=== PATIENT | female | born 1965 | race Caucasian/White ===

== ENCOUNTER 2017-08-26 11:04 | Inpatient (IN) | payer BC ==
[~2017-08-26] VITALS: Ht 167.6 cm; Wt 82.9 kg
[2017-08-26] VITALS (28 sets, daily range): BP systolic 129–216; BP diastolic 72–115; PULSE 82–102; TEMP 36.8–36.9; O2SAT 95–99; BMI 29.5
[2017-08-26] MEDS ORDERED: ASPI325T39 PO (11:33)
[2017-08-26] MEDS ORDERED: [UNRECOGNIZED DRUG - CODE] PO (11:33)
[2017-08-26] MEDS ORDERED: METF-384 PO (11:33)
[2017-08-26] MEDS ORDERED: SODIUM CHLORIDE 0.9% 1000ML 1,000 ML IV SCH (11:38)
[2017-08-26] MEDS ORDERED: LABETALOL HCL IV 5 MG/ML 20ML IV STA ×2 (11:41→12:40)
[2017-08-26] MEDS ORDERED: SODIUM CHLORIDE 0.9% 1000ML 1,000 ML IV STA (11:51)
[2017-08-26] MEDS ORDERED: NovoLIN-R INSULIN PER UNIT CHARGE IV STA (11:51)
--- NOTE | 2017-08-26 11:59 | DIAGNOSTIC IMAGING REPORT ---
CHEST ONE VIEW PORTABLE CLINICAL HISTORY: Stroke COMPARISON STUDY: No previous studies for comparison. FINDINGS: The cardiac and mediastinal contours are normal. There is no evidence of focal pulmonary consolidation. There is no evidence of failure. No pleural effusions are visualized.[ IMPRESSION: No active disease in the chest. Electronically signed by: Peter Naqvi M.D. 08/26/2017 11:58 AM Dictated Date/Time: 08/26/2017 11:58 AM
[2017-08-26 12:07] LABS: BASO % 0.5 %; BASO ABS # 0.04 K/uL (0-0.2); EOS % 1.5 %; EOS ABS # 0.11 K/uL (0-0.5); HEMATOCRIT 40.1 % (37-47); IG# 0.02 K/uL (0.00-0.02); LYMPH % 18.5 %; LYMPH ABS # 1.36 K/uL (1.2-3.4); MEAN CELL VOLUME 77.3 fL (80-100); MEAN CORPUSCULAR HEMOGLOBIN 28.9 pg (25-34); MEAN CORPUSCULAR HGB CONC 37.4 g/dl (32-36); MEAN PLATELET VOLUME 9.6 fL (7.4-10.4); MONO % 3.5 %; MONO ABS # 0.26 K/uL (0.11-0.59); NEUT % 75.7 %; NEUT ABS # 5.57 K/uL (1.4-6.5); PLATELET COUNT 215 K/uL (130-400); RED CELL DISTRIBUTION WIDTH SD 33.6 fL (36.4-46.3); WHITE BLOOD COUNT 7.36 K/uL (4.8-10.8)
[2017-08-26 12:22] LABS: INR 0.9 (0.9-1.1); PTT PATIENT 25.1 SECONDS (21.0-31.0)
[2017-08-26 12:28] LABS: CALCIUM 9.6 mg/dl (8.5-10.1); CREATININE 3.33 mg/dl (0.60-1.20); POTASSIUM 3.3 mmol/L (3.5-5.1)
--- NOTE | 2017-08-26 12:28 | DIAGNOSTIC IMAGING REPORT ---
CT OF THE HEAD WITHOUT CONTRAST CLINICAL HISTORY: Slurred speech. History of stroke. COMPARISON STUDY: No previous studies for comparison. CT DOSE: 537.48 mGy.cm TECHNIQUE: Helical axial images of the head were obtained without IV contrast. Automated exposure control was utilized for the study. A dose lowering technique was utilized adhering to the principles of ALARA. FINDINGS: No acute intracranial hemorrhage, midline shift or mass effect is present. There is an old 1.5 cm infarct within the right ramirez radiata with evidence of mild volume loss. Infarct extends into the internal capsule and right caudate nuclear. Ventricular system is unremarkable. Basilar cisterns are patent. There are no extra axial collections. There are white matter hypodensities. There are no CT findings to suggest acute dural sinus thrombosis or acute territorial infarct. There are no significant calvarial abnormalities. Visual portions of the sinuses are clear. There is trace fluid within the right mastoid air cells. IMPRESSION: 1. No acute intracranial hemorrhage or mass effect. 2. Old infarct within the right internal capsule/ramirez radiata. 3. White matter hypodensities. These are nonspecific and may reflect small vessel disease however are greater than expected for age. Electronically signed by: José Devi M.D. 08/26/2017 12:26 PM Dictated Date/Time: 08/26/2017 12:17 PM
[2017-08-26] MEDS ORDERED: POTASSIUM CHLORIDE 10 MEQ TABCR PO STA (12:37)
[2017-08-26] MEDS ORDERED: HHS GOAL RANGE 250-350 mg/dl ONE (14:00)
[2017-08-26] MEDS ORDERED: ICU PROTOCOL FOR HYPERGLYCEMIA PRN (14:00)
[2017-08-26] MEDS ORDERED: MODERATE STRESS LEVEL ONE (14:00)
[2017-08-26] MEDS ORDERED: NITROGLYCERIN 0.4 MG SL PER TAB CHARGE SL PRN (14:00)
[2017-08-26] MEDS ORDERED: ACETAMINOPHEN 325 MG TAB PO PRN (14:00)
[2017-08-26] MEDS ORDERED: INSULIN IV INFUSION PROTOCOL SCH (14:10)
[2017-08-26] MEDS ORDERED: PHARMACIST DISCHARGE MED REC CONSULT PRN (14:15)
--- NOTE | 2017-08-26 14:20 | History and Physical ---
History & Physical Date & Time of Service: Aug 26, 2017 at 14:20 Chief Complaint: Slurred Speech, - Hx Of Stroke Primary Care Physician: No Doctor, Assigned History of Present Illness Source: patient, clinic records, hospital records Patient is a 52-year-old female with a past medical history of poorly controlled HTN, DM II and h/o CVA 11 years ago with residual left hand paresthesias who presents with dysarthria beginning yesterday. 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 Began to notice that her mouth "felt funny yesterday", as if her tongue was swollen, although no verbal deficits were noted until today when she began slurring her speech. Speech has improved while in ED. With previous CVA patient first noted uncontrolled HTN and dysarthria, followed by left sided weakness. Was admitted to neuro ICU at [facility] in [place] as she required a drip to control hypertension. Still has residual paresthesias in left hand. Admits that she is noncompliant with medications most of the time, but has taken a full dose aspirin, Metformin and Olmesartan-HCTZ the past 2 days. Denies any headache, visual changes, facial droop, difficulty swallowing, chest pain, shortness of breath, nausea, vomiting, abdominal pain, gait abnormalities or numbness/weakness in upper or lower extremities. Past Medical/Surgical History Medical Problems: (1) Diabetes mellitus, type II Status: Chronic (2) H/O: CVA (cerebrovascular accident) Permanent Comment: R internal capsule; ~2006 Status: Chronic (3) HTN (hypertension) Status: Chronic Surgical Problems: (1) H/O: section Status: Resolved Family History Diabetes mellitus Heart disease Hypertension Social History Smoking Status: Never Smoker Alcohol Use: none Marital Status: Housing status: lives with family Occupational Status: employed Allergies Coded Allergies: Sulfamethoxazole w/Trimethoprim (Unverified Allergy, Unknown, ., 08/26/17) Home Medications Scheduled Aspirin (Aspirin Ec), 325 MG PO DAILY Metformin Hcl (Glucophage), 1,000 MG PO BID Olmesartan/Hctz (Benicar Hct 40/12.5), 1 TAB PO DAILY Review of Systems Ten systems reviewed and negative except as noted in the HPI. Neurologic: + numbness/tingling (left hand) Physical Exam Vital Signs Date Time Temp Pulse Resp B/P (MAP) Pulse Ox O2 Delivery O2 Flow Rate FiO2 08/26/17 12:58 217/118 08/26/17 12:48 92 18 148/136 95 Room Air 08/26/17 12:33 92 18 237/148 98 Room Air 08/26/17 12:25 111 18 263/139 08/26/17 12:17 104 08/26/17 11:45 98 Room Air 08/26/17 11:08 36.9 124 18 253/144 98 Room Air General Appearance: WD/WN, no apparent distress Head: normocephalic, atraumatic Eyes: normal inspection, PERRL, sclerae normal ENT: normal ENT inspection, hearing grossly normal, pharynx normal Neck: supple, trachea midline Respiratory/Chest: chest non-tender, lungs clear, normal breath sounds, no respiratory distress, no accessory muscle use Cardiovascular: regular rate, rhythm, no murmur, normal peripheral pulses Abdomen/GI: non tender, soft, no organomegaly Back: normal inspection Extremities/Musculoskelatal: normal inspection, no calf tenderness, no pedal edema Neurologic/Psych: briquette maker II-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 No facial droop, dysarthria or weakness noted ), alert, normal mood/affect, oriented x 3 Skin: normal color, warm/dry, no rash Diagnostics Laboratory Results Results Past 24 Hours Test 08/26/17 11:45 08/26/17 11:48 08/26/17 11:50 08/26/17 11:52 Range/Units Bedside Glucose 576 70-90 mg/dl Bedside Prothrombin Time INR 1.0 0.9-1.1 White Blood Count 7.36 4.8-10.8 K/uL Red Blood Count 5.19 4.2-5.4 M/uL Hemoglobin 15.0 12.0-16.0 g/dL Hematocrit 40.1 37-47 % Mean Corpuscular Volume 77.3 80-100 fL Mean Corpuscular Hemoglobin 28.9 25-34 pg Mean Corpuscular Hemoglobin Concent 37.4 32-36 g/dl Platelet Count 215 130-400 K/uL Mean Platelet Volume 9.6 7.4-10.4 fL Neutrophils (%) (Auto) 75.7 % Lymphocytes (%) (Auto) 18.5 % Monocytes (%) (Auto) 3.5 % Eosinophils (%) (Auto) 1.5 % Basophils (%) (Auto) 0.5 % Neutrophils # (Auto) 5.57 1.4-6.5 K/uL Lymphocytes # (Auto) 1.36 1.2-3.4 K/uL Monocytes # (Auto) 0.26 0.11-0.59 K/uL Eosinophils # (Auto) 0.11 0-0.5 K/uL Basophils # (Auto) 0.04 0-0.2 K/uL RDW Standard Deviation 33.6 36.4-46.3 fL RDW Coefficient of Variation 12.0 11.5-14.5 % Immature Granulocyte % (Auto) 0.3 % Immature Granulocyte # (Auto) 0.02 0.00-0.02 K/uL Prothrombin Time 9.8 9.0-12.0 SECONDS Prothromb Time International Ratio 0.9 0.9-1.1 Activated Partial Thromboplast Time 25.1 21.0-31.0 SECONDS Partial Thromboplastin Ratio 1.0 Sodium Level 127 136-145 mmol/L Potassium Level 3.3 3.5-5.1 mmol/L Chloride Level 91 98-107 mmol/L Carbon Dioxide Level 21 21-32 mmol/L Anion Gap 15.0 3-11 mmol/L Blood Urea Nitrogen 73 7-18 mg/dl Creatinine 3.33 0.60-1.20 mg/dl Est Creatinine Clear Calc Drug Dose 21.6 ml/min Estimated GFR () 17.6 Estimated GFR (Non- 15.2 BUN/Creatinine Ratio 22.0 10-20 Random Glucose 565 70-99 mg/dl Calcium Level 9.6 8.5-10.1 mg/dl Magnesium Level 2.1 1.8-2.4 mg/dl Troponin I 0.039 0-0.045 ng/ml Beta-Hydroxybutyric Acid 10.47 0.2-2.81 mg/dL Test 08/26/17 13:28 Range/Units Venous Blood pH 7.29 7.36-7.41 Venous Blood Partial Pressure CO2 51 38.0-50.0 mmHg Venous Blood Partial Pressure O2 21 mmHg Venous Blood HCO3 24 mmol/L Venous Blood Oxygen Saturation < 60.0 % Venous Blood Base Excess -2.6 mEq/L Diagnostic Radiology Head CT: IMPRESSION: 1. No acute intracranial hemorrhage or mass effect. 2. Old infarct within the right internal capsule/ramirez radiata. 3. White matter hypodensities. These are nonspecific and may reflect small vessel disease however are greater than expected for age. CXR: IMPRESSION: No active disease in the chest. EKG Sinus tachycardia, biatrial enlargement, left bundle branch block Impression Assessment and Plan Patient is a 52-year-old female with a past medical history of poorly controlled HTN, DM II and h/o CVA 11 years ago with residual left hand paresthesias who presents with dysarthria beginning yesterday. Hypertensive emergency: -Evidence of end organ damage to neuro, nephro systems -BP initially 253/144 -Given IV labetalol in ED. Decreased to 217/118 -Clinical Research Assistant managing -Nicardipine drip initiated with goal SBP 160-180 -Restart home medication -Trend troponin, fasting lipid panel, monitor kidney function Dysarthria: improved -CT head with old infarct within the right internal capsule/ramirez radiata. No acute intracranial findings -Control BP -Continue daily full dose aspirin -Consulted neuro -MRI brain without -MRA head/neck without -Echo DKA: -Non-compliance with home meds -Initial BSG of 565, anion gap of 15, B hydroxybutyric acid of 10.47 -Mild metabolic acidosis with pH of 7.29 -Urine ketones pending -Insulin infusion protocol -Glycemic consult -Diabetic education -IVFs, watching K closely -A1c pending -PRP Q4 Hyponatremia: -Pseudohyponatremia in setting of hyperglycemia -Corrected Na of 138 -D5 half NS with 40 mEq k, per certified real estate appraiser Dispo: -Not to drive until cleared by neurologist or PCP -PT, OT, speech evals ordered per stroke set protocol DVT Ppx: SQ heparin Code status: FULL Dispo: Admit to ICU. Discharge planning ordered. Patient seen in collaboration with Dr. Francis. Please see addendum. Attending Note: Patient is a 52 yr female with PMH of CVA, DM II, HTN, ?? CKD, Non compliance with medications and other problems presents with history of dysarthria, Left finger numbness, slurred speech. Patient had CVA about 11 yrs ago which resulted in Left hand numbness with no gross motor deficits. Patient noticed having difficulty with pronunciation yesterday and it got gradually worse this morning with slurring of words. Admits to being not being compliant with medications usually but has been taking her aspirin regularly since last 1 week.She doesn't take any meds currently for diabetes. CT head showed no acute process. Denies any history of chest pain, SOB, dizziness, fall, head trauma, LOC, change in vision, facial deformity, bowel/bladder incontinence. Physical Exam: Vitals signs as noted above General Appearance:Moderately built and nourished, no apparent distress Head: normocephalic, Atraumatic Eyes: normal inspection, EOMI, PERRL Neck: supple, Trachea midline, Respiratory/Chest: Normal breath sounds, CTA, No accessory muscle use Cardiovascular: S1, S2, No murmur, +Tachycardia Abdomen/GI:Soft, Non tender, Bowel sounds present Extremities/Musculoskelatal:normal inspection, no edema Neurologic/Psych:AAOX3, grossly no focal neurological deficits, + Dysarthria Skin:normal color,warm Assessment and Plan: Hypertensive Emergency: In Setting of stroke like symptoms Started on Nicardipine ggt as per Clinical Research Assistant Received labetalol in ED Benicar HCT held for now CT head: No acute Process Stroke Like Symptoms: R/O Acute CVA Stroke Work up pending Continue Aspirin, statins Neurology consulted DKA: Poorly controlled DM II secondary to Non compliance Not taking any meds at home Check A1C Continue Insulin therapy per DKA protocol monitor electrolytes Renal Insufficiency: Could have underlying CKD (2/2 poorly managed HTN, DM II) Monitor renal function Consider Nephrology consult if no improvement with IV fluids Hypokalemia: Replace and monitor Hyponatremia: Likely secondary to Hyperglycemia: Monitor I personally reviewed the record. Patient is interviewed and examined at bedside. Patient's care is coordinated with Bre Sparrow PA-C. Please refer to the documentation above for details of patient's presentation and for discussion of other issues. Resuscitation Status VTE Prophylaxis Will order VTE Prophylaxis: Yes
[2017-08-26] MEDS ORDERED: PHARMACY GLYCEMIC MGMT CONSULT PRN (14:40)
[2017-08-26] MEDS ORDERED: POTASSIUM CHLORIDE 20 MEQ TABCR PO STA (14:55)
--- NOTE | 2017-08-26 14:59 | Critical Care Consultation ---
Critical Care Consultation Date of Consultation: Aug 26, 2017. Attending Physician: Toño Mansfield Reason for Consultation: Hypertensive emergency diabetic ketoacidosis History of Present Illness Patient is a 52-year-old male with a significant past medical history for hypertension and diabetes on metformin 1000 mg twice daily, 325 mg aspirin daily and Benicar hydrochlorothiazide 40/12.5 mg 1 by mouth daily who presents with increasing slurred speech and duration of greater than 24 hours. Approximately a 11 years ago she had a similar hypertensive episode which systolics were greater than 200 and she suffered a CVA and has some very mild residual deficits in the left hand, she denies sensory loss or facial droop. 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 She admits to being a noncompliant patient and intermittently takes her medications. She is not routinely checking her blood sugars and she is not regularly checking her blood pressures. When she does take her medications and check her blood pressure she reports that is normally in the 130s systolic. When she is not taking her medication she does not check her blood pressures. Yesterday she started noticed that she was having difficulty with enunciation of words. She also noticed that there was some numbness in her left fingers which has now resolved although they are mildly weak when compared to the right. Since symptoms have gotten worse today after initial improvement yesterday she sought medical treatment. She is reports that she is taking her medication for the last 2 days, despite this her blood pressures are routinely in the 200s systolic. In the emergency department she was given a dose of labetalol and had significant reduction in her blood pressure; however it quickly increased back into the 200 systolic. I have been asked to provide further evaluation and management. With regards to her driving she drove herself from [place] down to [facility]. Her is currently in [place] and is driving to the area tomorrow. With regards to her previous episode back 11 years ago she was instructed not to drive until cleared by neurology. She reports that she waited approximately 1 month and was still unable to get a follow-up appointment with neurology at which time she resumed her driving. Past Medical/Surgical History Hypertension Previous stroke of the right internal capsule Diabetes Family History Diabetes mellitus Heart disease Hypertension Social History Smoking Status: Never Smoker Smokeless Tobacco Use: No Alcohol Use: none Drug Use: none Marital Status: Housing Status: lives with family Allergies Coded Allergies: Sulfamethoxazole w/Trimethoprim (Unverified Allergy, Unknown, ., 08/26/17) Home Medications Scheduled Aspirin (Aspirin Ec), 325 MG PO DAILY Metformin Hcl (Glucophage), 1,000 MG PO BID Olmesartan/Hctz (Benicar Hct 40/12.5), 1 TAB PO DAILY Current Inpatient Medications Current Inpatient Medications Medications (Trade) Dose Ordered Sig/Neha Route Start Time Stop Time Status Last Admin Dose Admin Sodium Chloride 1,000 ml @ 50 mls/hr Q20H IV 08/26/17 11:38 09/25/17 11:37 08/26/17 11:38 50 MLS/HR Acetaminophen (Tylenol Tab) 650 mg Q4H PRN PO 08/26/17 14:00 09/25/17 13:59 Nitroglycerin (Nitrostat Tab) 0.4 mg UD PRN SL 08/26/17 14:00 09/25/17 13:59 Pantoprazole Sodium 40 mg/ Syringe 10 ml @ 5 mls/min DAILY IV 08/27/17 09:00 09/26/17 08:59 UNV Miscellaneous Information (Icu Protocol For Hyperglycemia) 1 ea PRN PRN N/A 08/26/17 14:00 08/28/17 13:59 Insulin Human Regular (Insulin IV Infusion Protocol) 1 ea Q15M N/A 08/26/17 14:10 09/25/17 14:09 Insulin Aspart (novoLOG ASPART) SLIDING SCALE PCHS NE 08/26/17 19:00 09/25/17 18:59 UNV Review of Systems Constitutional: No fever, No chills, No sweats Eyes: No worsening of vision, No redness ENT: No sore throat, No tinnitus Respiratory: No cough, No sputum Cardiovascular: No chest pain, No edema Abdomen: No pain, No nausea, No vomiting Neurologic: + weakness, + numbness/tingling, No memory loss, No paralysis, No vertigo Physical Exam Date Time Temp Pulse Resp B/P (MAP) Pulse Ox O2 Delivery O2 Flow Rate FiO2 08/26/17 12:58 217/118 08/26/17 12:48 92 18 148/136 95 Room Air 08/26/17 12:33 92 18 237/148 98 Room Air 08/26/17 12:25 111 18 263/139 08/26/17 12:17 104 08/26/17 11:45 98 Room Air 08/26/17 11:08 36.9 124 18 253/144 98 Room Air General Appearance: well-appearing, WD/WN, no apparent distress Head: normocephalic, atraumatic Eyes: PERRLA ENT: normal ear exam, normal nasal exam, normal mouth exam Neck: no tenderness, trachea midline, no stridor, supple Respiratory: breath sounds normal, clear to auscultation, no respiratory distress Cardiovasular: regular rate/rhythm, normal S1S2, no M/G/R Abdomen: non tender Back: normal inspection Upper Extremities: no edema Lower Extremities: no edema Pulses: radial (R) (2+), radial (L) (2+) Neuro: alert, oriented x 3, normal sensation, normal memory, focal weakness ( Very 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 hydraulic governor assembler strength with left hand when compared to the right) Psychiatric: normal affect Laboratory Results Last 24 Hours Test 08/26/17 11:45 08/26/17 11:48 08/26/17 11:50 08/26/17 11:52 Bedside Glucose 576 mg/dl Bedside Prothrombin Time INR 1.0 White Blood Count 7.36 K/uL Red Blood Count 5.19 M/uL Hemoglobin 15.0 g/dL Hematocrit 40.1 % Mean Corpuscular Volume 77.3 fL Mean Corpuscular Hemoglobin 28.9 pg Mean Corpuscular Hemoglobin Concent 37.4 g/dl Platelet Count 215 K/uL Mean Platelet Volume 9.6 fL Neutrophils (%) (Auto) 75.7 % Lymphocytes (%) (Auto) 18.5 % Monocytes (%) (Auto) 3.5 % Eosinophils (%) (Auto) 1.5 % Basophils (%) (Auto) 0.5 % Neutrophils # (Auto) 5.57 K/uL Lymphocytes # (Auto) 1.36 K/uL Monocytes # (Auto) 0.26 K/uL Eosinophils # (Auto) 0.11 K/uL Basophils # (Auto) 0.04 K/uL RDW Standard Deviation 33.6 fL RDW Coefficient of Variation 12.0 % Immature Granulocyte % (Auto) 0.3 % Immature Granulocyte # (Auto) 0.02 K/uL Prothrombin Time 9.8 SECONDS Prothromb Time International Ratio 0.9 Activated Partial Thromboplast Time 25.1 SECONDS Partial Thromboplastin Ratio 1.0 Sodium Level 127 mmol/L Potassium Level 3.3 mmol/L Chloride Level 91 mmol/L Carbon Dioxide Level 21 mmol/L Anion Gap 15.0 mmol/L Blood Urea Nitrogen 73 mg/dl Creatinine 3.33 mg/dl Est Creatinine Clear Calc Drug Dose 21.6 ml/min Estimated GFR () 17.6 Estimated GFR (Non- 15.2 BUN/Creatinine Ratio 22.0 Random Glucose 565 mg/dl Calcium Level 9.6 mg/dl Magnesium Level 2.1 mg/dl Troponin I 0.039 ng/ml Beta-Hydroxybutyric Acid 10.47 mg/dL Test 08/26/17 13:28 Venous Blood pH 7.29 Venous Blood Partial Pressure CO2 51 mmHg Venous Blood Partial Pressure O2 21 mmHg Venous Blood HCO3 24 mmol/L Venous Blood Oxygen Saturation < 60.0 % Venous Blood Base Excess -2.6 mEq/L Diagnostic Results I reviewed both the chest x-ray and CT scan of the head as well as the radiology report and concur with the report. Assessment & Plan Reason Critically Ill: Hypertensive emergency with endorgan ischemia manifested as strokelike symptoms greater than 24 hours PLAN: Neuro: Previous CVA -Continue antiplatelet therapy -Blood pressure control CV: Malignant hypertension -Restart home medication -IV nicardipine for 10-20% reduction in the first 24 hours Cardiac risk factor stratification -Fasting lipid profile -Trend troponins -Continue antiplatelet therapy Fluids/Renal: Diabetic ketoacidosis Factitious hyponatremia corrected: 138 -Start D5 half NS with 40 mEq k -This does not appear very severe DKA, patient will likely clear rather quickly Acute kidney injury -Serum creatinine 3.3, unknown baseline -Strict I's and O'ss ID: Trend fever curve GI/Nutrition: Patient not experiencing nausea and vomiting will start regular diet that is AHA heart healthy type II diabetic with low sodium. -No indication for PPI at this time Heme: Heparin 5000 units every 8 hours secondary to renal insufficiency Endocrine: Hyperglycemia, DKA protocol -Insulin infusion -Check A1c -cosmetology educator consult, glycemic control consult with pharmacy Vascular access: Patient's unwilling to consent for arterial line. 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 She is willing to revisit the topic of central venous access should that need arise. The patient has been consented for blood transfusion is willing to undergo one should she need a blood transfusion. Code Status: Full I had an extensive discussion with the patient regarding driving status. I advised her that she is not to drive until she is cleared by a neurologist or primary care provider and has better chronic control of her blood pressure as well as her diabetes. Additionally I have completed a Department of Motor Vehicles Form DS-6 of the [facility]. This is a physicians reporting form, in part to I have indicated they have treated the patient date of examination is August 26, 2017, I listed the patient's current outpatient regimen , if indicated in my medical opinion the patient's condition may affect the safe operation of motor vehicle and the patient should be evaluated by the Department of Motor Vehicles. Further detail they indicated that I treated the patient for malignant hypertension which required a intensive care unit admission for end organ ischemia and worsening neurological deficit. I have personally spent 85 minutes of critical care time in the direct management of this patient. This is a life/limb threatening event. This includes time spent evaluating patient, direct bedside care, chart review, placing orders, interpretation of diagnostic studies, discussion with consultants, patient, and/or family members regarding treatment decisions, as well as other required patient management activities. This time is exclusive of all separately billable procedures, and teaching time and separate from and in addition to any other critical care service time.
[2017-08-26] MEDS: NiCARDipine IV 25 MG in SODIUM CHLORIDE 0.9% 250ML 240 ML IV PRN ×2 (15:00→19:05)
--- NOTE | 2017-08-26 15:30 | Pharmacy Progress Note ---
Glycemic Control Intl Consult Date of Service Aug 26, 2017. Scope Glycemic Pharmacist consulted by Dr Cary on 08/26/17 for glycemic control and to write orders per [facility] inpatient glycemic control protocol Objective Weight (Kilograms): 82.10 Accuchecks BSG (last 24hrs): Test 08/26/17 11:45 08/26/17 11:52 Bedside Glucose 576 mg/dl (70-90) Random Glucose 565 mg/dl (70-99) Laboratory Data (last 24hrs) Test 08/26/17 11:52 Anion Gap 15.0 mmol/L BUN/Creatinine Ratio 22.0 Blood Urea Nitrogen 73 mg/dl Creatinine 3.33 mg/dl Potassium Level 3.3 mmol/L Sodium Level 127 mmol/L White Blood Count 7.36 K/uL Red Blood Count 5.19 M/uL Hemoglobin 15.0 g/dL Hematocrit 40.1 % Mean Corpuscular Volume 77.3 fL Mean Corpuscular Hemoglobin 28.9 pg Mean Corpuscular Hemoglobin Concent 37.4 g/dl Platelet Count 215 K/uL Mean Platelet Volume 9.6 fL Neutrophils (%) (Auto) 75.7 % Lymphocytes (%) (Auto) 18.5 % Monocytes (%) (Auto) 3.5 % Eosinophils (%) (Auto) 1.5 % Basophils (%) (Auto) 0.5 % Neutrophils # (Auto) 5.57 K/uL Lymphocytes # (Auto) 1.36 K/uL Monocytes # (Auto) 0.26 K/uL Eosinophils # (Auto) 0.11 K/uL Basophils # (Auto) 0.04 K/uL Recent Pertinent Medications Outpatient Anti-diabetic Regimen: * metformin 1 gm PO BID Risk Factors for Insulin Resistance: * Diet: type 2 diabetic diet Assessment & Plan ASSESSMENT: * Ms Thomas is a 52 y/o F with a PMH of HTN and DM who is admitted with hyperglycemia and hypertensive urgency. Patient has unknown control of her type 2 diabetes. Will start insulin infusion as patient is to be admitted to ICU. * She does not fit a clear picture of DKA or HHS (patient is slightly acidotic but osmolarity is not extremely high). Currently fluids are running with dextrose at 100 mLs/hr .... this is reasonable currently secondary to patients hypertensive urgency and kidney status. Will follow closely. Utilize goal between DKA and HHS to make a reasonable goal until HbA1C is known and patient stabilizes. PLAN FOR INPATIENT GLYCEMIC CONTROL: * Starting IV insulin infusion per moderate (moderate/severe) stress protocol * Goal Range 200 - 300 mg/dl * In the critical care setting, continuous IV insulin infusion has been shown to be the best method for achieving glycemic targets. * Holding outpatient oral diabetes medications * Please note that the plan above was derived based on current level of insulin resistance and hospital stress. These recommendations are appropriate for inpatient admission only. Plan of care upon discharge will need to be reassessed to avoid potential outpatient hypo/hyperglycemia. Thank you.
[2017-08-26] MEDS ORDERED: INSULIN REGULAR 250 UNITS in SODIUM CHLORIDE 0.9% 250ML 250 ML IV SCH (15:45)
[2017-08-26] MEDS ORDERED: DEXTROSE 50% 50 ML SYR IV PRN (15:45)
[2017-08-26] MEDS ORDERED: GLUCAGON FOR INJ 1 MG VIAL SQ PRN (15:45)
[2017-08-26] MEDS ORDERED: GLUCOSE 10 TABS/TUBE PO PRN (15:45)
[2017-08-26] MEDS ORDERED: GLUCOSE 40% GEL 15 GM TUBE PO PRN (15:45)
[2017-08-26] MEDS ORDERED: INSULIN HUMAN REGULAR IV BOLUS 2 UNIT in SYRINGE 0 ML IV SCH (15:45)
[2017-08-26] MEDS: D5W AND 1/2NSS + 40MEQ KCL 1,000 ML IV SCH (16:44)
[2017-08-26 17:12] LABS: CALCIUM 9.4 mg/dl (8.5-10.1); CREATININE 3.17 mg/dl (0.60-1.20); PHOSPHORUS 3.4 mg/dl (2.5-4.9); POTASSIUM 3.2 mmol/L (3.5-5.1)
[2017-08-26] MEDS: INSULIN ASPART 100 UNITS/ML 3 ML PEN SC SCH ×2 (17:15→20:52)
--- NOTE | 2017-08-26 17:49 | EMERGENCY ROOM VISIT NOTE ---
History Report prepared by Noreen: Radha Hill Under the Supervision of: Dr. Toño Mansfield M.D. First contact with patient: 11:29 Chief Complaint: NEURO SYMPTOMS Stated Complaint: SLURRED SPEECH, - HX OF STROKE Nursing Triage Summary: pt reports she drove down fromn [place] 2 days ago. started having slurred speech yesterday worse today has hx of prior cva. little weakness in fingers and numbness in left hand from previous stroke. History of Present Illness The patient is a 52 year old female who presents to the Emergency Room with complaints of persistent difficulty speaking since yesterday morning. She notes that she woke up yesterday with garbled speech. She notes the symptoms seemed to improve yesterday throughout the day, though they did not go away and are now worsened today. She denies having trouble finding words or understanding words. She states that her tongue feels big. She denies that her tongue is enlarged. She denies any itchiness or rash. She denies any nausea, vomiting, chest pain, or shortness of breath. She took Aspirin when she arrived at the ED. She has a history of HTN. She took her medications for the last two days, though reports that she is rarely compliant with her medication. She denies any headache. She denies any trouble swallowing or walking. She denies any focal numbness or weakness other than numbness and weakness to her left hand which is residual from her prior stroke. She states that she had a stroke years ago due to her elevated blood pressure which started with difficulty speaking. She denies any urinary symptoms. 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 The patient gave permission to speak to her over the phone. Source of History: patient Onset: since yesterday morning Position: other (general ) Quality: other (garbled speech) Timing: other (persistent) Associated Symptoms: No headache, No chest pain, No SOB, No nausea, No vomiting, No urinary symptoms, No rash Note: She notes sensation of tongue feeling enlarged. She denies any tongue swelling. She denies any trouble walking or swallowing. She denies any itchiness. Review of Systems See HPI for pertinent positives & negatives. A total of 10 systems reviewed and were otherwise negative. Past Medical & Surgical Medical Problems: (1) Diabetes mellitus, type II (2) H/O: CVA (cerebrovascular accident) (3) HTN (hypertension) Surgical Problems: (1) H/O: section Family History Diabetes mellitus Heart disease Hypertension Social History Smoking Status: Never Smoker Smokeless Tobacco Use: No Alcohol Use: none Drug Use: none Marital Status: Housing Status: lives with significant other Occupation Status: unemployed Current/Historical Medications Scheduled Aspirin (Aspirin Ec), 325 MG PO DAILY Metformin Hcl (Glucophage), 1,000 MG PO BID Olmesartan/Hctz (Benicar Hct 40/12.5), 1 TAB PO DAILY Allergies Coded Allergies: Sulfamethoxazole w/Trimethoprim (Unverified Allergy, Unknown, ., 08/26/17) Physical Exam Vital Signs Date Time Temp Pulse Resp B/P (MAP) Pulse Ox O2 Delivery O2 Flow Rate FiO2 08/26/17 12:58 217/118 08/26/17 12:48 92 18 148/136 95 Room Air 08/26/17 12:33 92 18 237/148 98 Room Air 08/26/17 12:25 111 18 263/139 08/26/17 12:17 104 08/26/17 11:45 98 Room Air 08/26/17 11:08 36.9 124 18 253/144 98 Room Air Physical Exam Constitutional: Vital signs reviewed. Severely hypertensive. Eyes: Pupils are equal round reactive to light. Conjunctiva are noninjected. ENT: Pharynx is clear without erythema or exudate. Mucous membranes are moist. No swelling to her tongue. Neck supple without meningeal signs. Respiratory: Clear to auscultation bilaterally. Breath sounds are equal bilaterally. Cardiovascular: Tachycardic rate and regular rhythm. No rubs or gallops. GI: Soft, nondistended and nontender. Bowel sounds are present. Musculoskeletal: No peripheral edema. No lower extremity tenderness. Integumentary: No cyanosis. Neurological: The patient is awake and alert. Cranial nerves II-XII are intact. Motor is 5 out of 5 all extremities. Sensation is intact to light touch all extremities. Slightly slurred speech. No pronator drift. No limb ataxia. Psychiatric: Anxious affect. Medical Decision & Procedures ER Provider Diagnostic Interpretation: Radiology results as stated below per my review and the radiologist's interpretation: CHEST ONE VIEW PORTABLE CLINICAL HISTORY: Stroke COMPARISON STUDY: No previous studies for comparison. FINDINGS: The cardiac and mediastinal contours are normal. There is no evidence of focal pulmonary consolidation. There is no evidence of failure. No pleural effusions are visualized.[ IMPRESSION: No active disease in the chest. Electronically signed by: Peter Naqvi M.D. 08/26/2017 11:58 AM Dictated Date/Time: 08/26/2017 11:[address] OF THE HEAD WITHOUT CONTRAST CLINICAL HISTORY: Slurred speech. History of stroke. COMPARISON STUDY: No previous studies for comparison. CT DOSE: 537.48 mGy.cm TECHNIQUE: Helical axial images of the head were obtained without IV contrast. Automated exposure control was utilized for the study. A dose lowering technique was utilized adhering to the principles of ALARA. FINDINGS: No acute intracranial hemorrhage, midline shift or mass effect is present. There is an old 1.5 cm infarct within the right ramirez radiata with evidence of mild volume loss. Infarct extends into the internal capsule and right caudate nuclear. Ventricular system is unremarkable. Basilar cisterns are patent. There are no extra axial collections. There are white matter hypodensities. There are no CT findings to suggest acute dural sinus thrombosis or acute territorial infarct. There are no significant calvarial abnormalities. Visual portions of the sinuses are clear. There is trace fluid within the right mastoid air cells. IMPRESSION: 1. No acute intracranial hemorrhage or mass effect. 2. Old infarct within the right internal capsule/ramirez radiata. 3. White matter hypodensities. These are nonspecific and may reflect small vessel disease however are greater than expected for age. Electronically signed by: José Devi M.D. 08/26/2017 12:26 PM Dictated Date/Time: 08/26/2017 12:17 PM Laboratory Results 08/26/17 11:52 Red Blood Count 5.19, Mean Corpuscular Volume 77.3, Mean Corpuscular Hemoglobin 28.9, Mean Corpuscular Hemoglobin Concent 37.4, Mean Platelet Volume 9.6, Neutrophils (%) (Auto) 75.7, Lymphocytes (%) (Auto) 18.5, Monocytes (%) (Auto) 3.5, Eosinophils (%) (Auto) 1.5, Basophils (%) (Auto) 0.5, Neutrophils # (Auto) 5.57, Lymphocytes # (Auto) 1.36, Monocytes # (Auto) 0.26, Eosinophils # (Auto) 0.11, Basophils # (Auto) 0.04 Test 08/26/17 11:48 08/26/17 11:50 08/26/17 11:52 08/26/17 13:28 Bedside Prothrombin Time INR 1.0 (0.9-1.1) Osmolality 334 mOsm/kg (280-300) White Blood Count 7.36 K/uL (4.8-10.8) Red Blood Count 5.19 M/uL (4.2-5.4) Hemoglobin 15.0 g/dL (12.0-16.0) Hematocrit 40.1 % (37-47) Mean Corpuscular Volume 77.3 fL (80-100) Mean Corpuscular Hemoglobin 28.9 pg (25-34) Mean Corpuscular Hemoglobin Concent 37.4 g/dl (32-36) Platelet Count 215 K/uL (130-400) Mean Platelet Volume 9.6 fL (7.4-10.4) Neutrophils (%) (Auto) 75.7 % Lymphocytes (%) (Auto) 18.5 % Monocytes (%) (Auto) 3.5 % Eosinophils (%) (Auto) 1.5 % Basophils (%) (Auto) 0.5 % Neutrophils # (Auto) 5.57 K/uL (1.4-6.5) Lymphocytes # (Auto) 1.36 K/uL (1.2-3.4) Monocytes # (Auto) 0.26 K/uL (0.11-0.59) Eosinophils # (Auto) 0.11 K/uL (0-0.5) Basophils # (Auto) 0.04 K/uL (0-0.2) RDW Standard Deviation 33.6 fL (36.4-46.3) RDW Coefficient of Variation 12.0 % (11.5-14.5) Immature Granulocyte % (Auto) 0.3 % Immature Granulocyte # (Auto) 0.02 K/uL (0.00-0.02) Prothrombin Time 9.8 SECONDS (9.0-12.0) Prothromb Time International Ratio 0.9 (0.9-1.1) Activated Partial Thromboplast Time 25.1 SECONDS (21.0-31.0) Partial Thromboplastin Ratio 1.0 Venous Blood pH 7.29 (7.36-7.41) Venous Blood Partial Pressure CO2 51 mmHg (38.0-50.0) Venous Blood Partial Pressure O2 21 mmHg Venous Blood HCO3 24 mmol/L Venous Blood Oxygen Saturation < 60.0 % Venous Blood Base Excess -2.6 mEq/L Laboratory results as reviewed by me. Medications Administered Medications (Trade) Dose Ordered Sig/Neha Route Start Time Stop Time Status Last Admin Dose Admin Sodium Chloride 1,000 ml @ 50 mls/hr Q20H IV 08/26/17 11:38 08/26/17 14:42 DC 08/26/17 11:38 50 MLS/HR Labetalol HCl (Normodyne IV) 10 mg NOW STAT IV 08/26/17 11:41 08/26/17 11:42 DC 08/26/17 12:19 10 MG Sodium Chloride 1,000 ml @ 999 mls/hr Q1H1M STAT IV 08/26/17 11:51 08/26/17 12:51 DC 08/26/17 12:17 999 MLS/HR Insulin Human Regular (novoLIN-R U-100 PER UNIT) 8 units NOW STAT IV 08/26/17 11:51 08/26/17 11:53 DC 08/26/17 12:24 8 UNITS Potassium Chloride (Klor-Con M10) 40 meq NOW STAT PO 08/26/17 12:37 08/26/17 12:39 DC 08/26/17 12:44 40 MEQ Labetalol HCl (Normodyne IV) 20 mg NOW STAT IV 08/26/17 12:40 08/26/17 12:41 DC 08/26/17 12:44 20 MG ECG Per My Interpretation Indication: other (stroke) Rate (beats per minute): 104 Rhythm: sinus tachycardia Findings: LBBB, T-wave inversion (Lateral) ED Course 1130: The patient was evaluated in room C4. A complete history and physical exam was performed. 1138: Ordered Sodium Chloride 1,000 ml @ 50 mls/hr IV 1141: Ordered Labetalol HCl 10 mg IV 1142: I spoke with the patients via the phone. He agrees with the plan. He reports that the last stroke the patient had begun with speech issues and she had hemiplegia for over a day. 1148: I reassessed the patient at this time. She says the TWI and LBBB on her ECG are old. She has seen them before to her best recollection. Her BSG is over 500. She states that she non-compliant. 1151: Ordered Insulin Human Regular 8 units IV and Sodium Chloride 1,000 ml @ 999 mls/hr IV 1236: I reassessed the patient at this time. She thinks she has had an elevated Creatine in the past, though she could not clarify what the last value was. 1237: Ordered Potassium Chloride 40 meq PO 1240: Ordered Labetalol HCl 20 mg IV 1242: I reassessed the patient at this time. She is still severely hypertensive. I discussed the results and treatment plan with the patient. I answered all pertaining questions that she had. She expressed understanding and verbalized agreement. The patient will be further evaluated. 1250: I spoke with Lane Herbert PA-C . We discussed the patient's case. [facility] 1307: I spoke with Dr. Cary, auto former machine operator. We discussed the patient's case at this time. He will evaluate the patient. 1338: I spoke with Dr. Cary. He evaluated the patient. She will be taken to ICU. Medical Decision This is a 52-year-old female presents with difficulty speaking and hypertension. Differential diagnosis includes CVA, TIA, intracranial mass, intracranial hemorrhage, metabolic derangement, hypertensive emergency, medication noncompliance. I did perform a limited focused review of portions of the patient's old chart on the electronic medical record. The patient has had no recent pertinent visits to this hospital. I did evaluate the patient as noted above. I did obtain history from the patient. With the patient's permission I also spoke to her who is a physician and had called earlier. He let me know that the patient had a stroke previously and had a prolonged course with left-sided paralysis developing over 24 hour period while on trips to lower her blood pressure. The patient is not an IV TPA candidate because she has had symptoms since yesterday morning when she woke up. Her symptoms have also been over 24 hours and so she is likely not an endovascular intervention candidate. IV access was established. The patient was placed on a continuous monitor tech. She is severely hypertensive. She is also tachycardic but she states that she is very nervous. She was given a dose of labetalol IV. Blood sugar demonstrated a serum glucose over 500. She was given 8 units of regular insulin IV. She is also given a liter of normal saline IV. She does state that she has not been taking her diabetic medications. I did order and personally review the patient's 12- lead EKG and chest x-ray as described above. I did order and review the patient 's blood work as noted in the electronic medical record. She does have some mild hypokalemia. Had given her insulin earlier for her blood sugar which shifted the potassium intracellularly. She does have a creatinine of 3.3 and so I did not wish to give her IV calcium. I did give her a small dose of oral potassium 40 mEq. She does also have pseudohyponatremia. She does have a small anion gap so I did order a VBG to assess for DKA. I did order a CT of the head. I did review the images myself as well as the radiology report as described above. She has an old stroke but no signs of an acute stroke. I did discuss the test results with the patient. She remains hypertensive and so I did treat her with an additional labetalol 20 mg IV. I did discuss the case with the auto former machine operator to evaluate her in the emergency department. I also spoke to the child support case officer and hospitalist. She was admitted to the ICU. Medication Reconcilliation Current Medication List: was personally reviewed by me Blood Pressure Screening Patient's blood pressure: Elevated blood pressure Blood pressure disposition: Referred to PCP Consults Time Called: 1246 Consulting Physician: Lane Herbert PA-C Returned Call: 1250 I spoke with Lane Herbert PA-C . We discussed the patient's case. The patient will be evaluated by the [facility] for further management. Additional Consults: Time Called: 1303 Consulted Physician: Dr. Cary, auto former machine operator Returned Call: 1307 Additional Comments: I spoke with Dr. Cary, auto former machine operator. We discussed the patient's case at this time. He will evaluate the patient. 1338: I spoke with Dr. Cary. He evaluated the patient. She will be taken to ICU. Impression Primary Impression: Dysarthria Additional Impressions: Hypertensive emergency Hyperglycemia Acute kidney injury Critical Care I have personally spent 40 minutes of critical care time in the direct management of this patient. This includes bedside care, interpretation of diagnostic studies and testing, discussion with consultants and patient, and other required patient management activities. This time is in excess of all separately billable procedures. Scribe Attestation The scribe's documentation has been prepared under my direct and personally reviewed by me in its entirety. I confirm that the note above accurately reflects all work, treatment, procedures, and medical decision making performed by me. Departure Information Dispostion Being Evaluated By Hospitalist Referrals No Doctor, Assigned (PCP) Patient Instructions My [facility] Problem Qualifiers
[2017-08-26] MEDS ORDERED: NURSING VERBAL MED ORDER ONE (19:00)
[2017-08-26] MEDS: MAGNESIUM OXIDE 400 MG TAB PO SCH (19:04)
[2017-08-26 20:43] LABS: CALCIUM 8.9 mg/dl (8.5-10.1); CREATININE 3.04 mg/dl (0.60-1.20); PHOSPHORUS 2.7 mg/dl (2.5-4.9); POTASSIUM 3.9 mmol/L (3.5-5.1)
--- NOTE | 2017-08-26 23:28 | DIAGNOSTIC IMAGING REPORT ---
MR ANGIOGRAM OF THE BRAIN CLINICAL HISTORY: Stroke. COMPARISON STUDY: MRI of the brain performed concurrently on 08/26/2017. TECHNIQUE: 3-D [id number] MR angiography of the intracranial circulation is performed. 3-D tumble views are created and assessed. IV contrast was not administered for this examination. FINDINGS: The [place] is developmentally likely complete noting a large right posterior communicating artery. The internal carotid arteries are widely patent bilaterally, as are the anterior and middle cerebral arteries. The vertebrobasilar system and posterior cerebral arteries are widely patent. The vertebral arteries are codominant. There is no aneurysm, high-grade stenosis, or focal vessel cutoff seen throughout the intracranial circulation. The brain parenchyma is normal as visualized. IMPRESSION: Unremarkable MR angiogram of the brain. Electronically signed by: Bam Teague M.D. 08/26/2017 11:27 PM Dictated Date/Time: 08/26/2017 11:25 PM
--- NOTE | 2017-08-26 23:34 | DIAGNOSTIC IMAGING REPORT ---
MRI OF THE BRAIN WITHOUT IV CONTRAST CLINICAL HISTORY: Slurred speech. Left upper extremity numbness. COMPARISON STUDY: CT of the brain dated 08/26/2017. TECHNIQUE: MRI of the brain was performed utilizing various T1 and T2-weighted sequences in the axial, sagittal, and coronal planes. IV contrast was not administered for this examination. FINDINGS: Brain parenchyma: There are small foci of restricted diffusion identified in the left basal ganglia and the left ramirez radiata consistent with acute to subacute lacunar infarcts. No additional foci of acute ischemia are identified. There is moderate subcortical and periventricular microangiopathic disease. Chronic lacunar infarcts are identified in the right basal ganglia, the right thalamus, and the right ramirez radiata. There is no hemorrhage or mass effect. [place]-white matter differentiation is preserved. No extra-axial fluid collection is seen. The cerebellar tonsils are normal in configuration. Ventricles, sulci, and cisterns: Normal in configuration. Pituitary and sella: Partially empty sella is incidentally noted. Intracranial vasculature: Normal flow voids are maintained at the skull base. Orbits: The bony orbits are grossly intact. Orbital contents are normal in appearance. Sinuses and mastoids: Clear. Calvarium: Unremarkable. Cervical cord: Partially visualized cervical spinal cord is normal in morphology and signal intensity. IMPRESSION: 1. There are small acute to subacute lacunar infarcts identified in the left ramirez radiata and the left basal ganglia. 2. No additional foci of acute ischemia are identified. 3. There is no hemorrhage or mass effect. Electronically signed by: Bam Teague M.D. 08/26/2017 11:32 PM Dictated Date/Time: 08/26/2017 11:28 PM
--- NOTE | 2017-08-26 23:36 | DIAGNOSTIC IMAGING REPORT ---
MR ANGIOGRAM OF THE NECK WITHOUT IV CONTRAST CLINICAL HISTORY: Stroke. COMPARISON STUDY: No priors. TECHNIQUE: Axial 3-D [id number] MR angiography of the neck is performed. Additionally, coronal unenhanced MR angiogram of the neck is performed. IV contrast was not administered for this examination. 3-D reformats are created and assessed. All measurements were calculated based on NASCET criteria. FINDINGS: Visualized portions of the thoracic aorta are normal in caliber. The right common carotid artery is widely patent, as are the right internal and external carotid arteries. The left common carotid artery is widely patent, as are the left internal and external carotid arteries. The vertebral arteries are widely patent. The vertebral arteries are codominant. IMPRESSION: Unremarkable unenhanced MR angiogram of the neck. Electronically signed by: Bam Teague M.D. 08/26/2017 11:35 PM Dictated Date/Time: 08/26/2017 11:33 PM
[2017-08-27] VITALS (34 sets, daily range): BP systolic 122–202; BP diastolic 71–126; PULSE 76–97; TEMP 36.6–36.9; O2SAT 93–99
[2017-08-27] MEDS: NiCARDipine IV 25 MG in SODIUM CHLORIDE 0.9% 250ML 240 ML IV PRN ×2 (00:06→18:50)
[2017-08-27] MEDS ORDERED: INSULIN GLARGINE SOLOSTAR 100 UNITS/ML 3 ML PEN SC ONE ×3 (00:45→21:00)
[2017-08-27 00:53] LABS: CREATININE 2.79 mg/dl (0.60-1.20); POTASSIUM 3.6 mmol/L (3.5-5.1)
[2017-08-27 00:54] LABS: PHOSPHORUS 3.2 mg/dl (2.5-4.9)
[2017-08-27] MEDS: INSULIN ASPART 100 UNITS/ML 3 ML PEN SC SCH ×7 (02:13→23:39)
[2017-08-27] MEDS: D5W AND 1/2NSS + 40MEQ KCL 1,000 ML IV SCH (02:47)
[2017-08-27] MEDS ORDERED: NSS + 20MEQ KCL 1000ML 1,000 ML IV SCH (03:15)
[2017-08-27] MEDS: HEPARIN SOD 5000 UNIT/0.5 ML CARP SQ SCH ×3 (05:41→22:16)
[2017-08-27] MEDS ORDERED: INSULIN HUMAN REGULAR PER UNIT 5 UNITS in SYRINGE 4.95 ML IV SCH (05:45)
[2017-08-27 05:48] LABS: BASO % 0.4 %; BASO ABS # 0.04 K/uL (0-0.2); EOS % 1.7 %; EOS ABS # 0.15 K/uL (0-0.5); HEMATOCRIT 34.9 % (37-47); HEMOGLOBIN 12.6 g/dL (12.0-16.0); IG# 0.01 K/uL (0.00-0.02); LYMPH % 38.3 %; LYMPH ABS # 3.42 K/uL (1.2-3.4); MEAN CELL VOLUME 79.5 fL (80-100); MEAN CORPUSCULAR HEMOGLOBIN 28.7 pg (25-34); MEAN CORPUSCULAR HGB CONC 36.1 g/dl (32-36); MEAN PLATELET VOLUME 9.4 fL (7.4-10.4); MONO % 5.6 %; NEUT % 53.9 %; NEUT ABS # 4.81 K/uL (1.4-6.5); PLATELET COUNT 211 K/uL (130-400); RED CELL DISTRIBUTION WIDTH CV 12.4 % (11.5-14.5); RED CELL DISTRIBUTION WIDTH SD 35.8 fL (36.4-46.3); WHITE BLOOD COUNT 8.93 K/uL (4.8-10.8)
[2017-08-27 06:21] LABS: CREATININE 2.94 mg/dl (0.60-1.20); POTASSIUM 4.1 mmol/L (3.5-5.1)
[2017-08-27 07:22] LABS: HEMOGLOBIN A1C 15.8 % (4.5-5.6)
[2017-08-27] MEDS ORDERED: INSULIN PROTOCOL GOAL RANGE ONE (07:30)
[2017-08-27] MEDS ORDERED: AMLODIPINE BESYLATE 5 MG TAB PO ONE ×2 (07:30→12:00)
--- NOTE | 2017-08-27 07:50 | Critical Care Progress Note ---
Critical Care Progress Note Date of Service Aug 27, 2017. Attending Dr. Cary Subjective No chest pain no shortness of breath, no overnight events. States speech is about the same no new focal deficit Objective General: Alert. nontoxic. Skin: Warm, dry, Head: Atraumatic Ears, nose, mouth and throat: airway patent Cardiovascular: Normal peripheral perfusion, normal S1-S2, no murmurs rubs gallops Respiratory: no respiratory distress, lungs clear to auscultation bilaterally Gastrointestinal: Non distended Musculoskeletal: No deformity Assessment & Plan PLAN: Neuro: New subacute CVA -Likely hypertensive in origin -Neurology consult -Blood pressure control Previous CVA -Continue antiplatelet therapy -Blood pressure control CV: Malignant hypertension -Added 12.5 mg metoprolol -Added 5 mg amlodipine -Holding AKOSUA inhibitor secondary to acute kidney injury -Adequate blood pressure reduction at this point, was running in the 150s this morning spiked prior to oral medication administration Cardiac risk factor stratification: Hypertriglyceridemia Hypercholesterolemia -High-dose statin therapy, atorvastatin 80 mg daily -Troponins peaked -Continue antiplatelet therapy -Encouraged lifestyle modifications Fluids/Renal: Diabetic ketoacidosis: Resolved -Transitioned to subcutaneous insulin Acute kidney injury -Serum creatinine 3.3 decrease to 2.94 -Strict I's and O's GI/Nutrition: Patient not experiencing nausea and vomiting will start regular diet that is AHA heart healthy type II diabetic with low sodium. -No indication for PPI at this time Heme: Heparin 5000 units every 8 hours secondary to renal insufficiency Endocrine: Hyperglycemia, DKA protocol -Insulin infusion discontinued transition to subcu insulin -A1c: 15.8 -diabetic educator consult, glycemic control consult with pharmacy Patient remains critically ill secondary to blood pressure spikes into the 200s requiring intravenous medications I have personally spent 65 minutes of critical care time in the direct management of this patient. This is a life/limb threatening event. This includes time spent evaluating patient, direct bedside care, chart review, placing orders, interpretation of diagnostic studies, discussion with consultants, patient, and/or family members regarding treatment decisions, as well as other required patient management activities. This time is exclusive of all separately billable procedures, and teaching time and separate from and in addition to any other critical care service time. Data Medications: Current Inpatient Medications Medications (Trade) Dose Ordered Sig/Neha Route Start Time Stop Time Status Last Admin Dose Admin Acetaminophen (Tylenol Tab) 650 mg Q4H PRN PO 08/26/17 14:00 09/25/17 13:59 Nitroglycerin (Nitrostat Tab) 0.4 mg UD PRN SL 08/26/17 14:00 09/25/17 13:59 Atorvastatin Calcium (Lipitor Tab) 80 mg QAM PO 08/27/17 09:00 09/26/17 08:59 Miscellaneous Information (Pharmacist Discharge Med Rec Consult) 1 ea UD PRN N/A 08/26/17 14:15 09/25/17 14:14 Aspirin (Ecotrin Tab) 325 mg DAILY PO 08/27/17 09:00 09/26/17 08:59 Miscellaneous Information (Consult Glycemic Management Pharmacy) 1 ea UD PRN N/A 08/26/17 14:40 09/25/17 14:39 Nicardipine HCl 25 mg/Sodium Chloride 250 ml @ 0 mls/hr Q0M PRN IV 08/26/17 14:36 09/25/17 14:35 08/27/17 00:06 40 MLS/HR Glucose (Glucose 40% Gel) 15-30 GRAMS 15 GRAMS... UD PRN PO 08/26/17 15:45 09/25/17 15:44 Glucose (Glucose Chew Tab) 4-8 Tablets 4 Tabl... UD PRN PO 08/26/17 15:45 09/25/17 15:44 Dextrose (Dextrose 50% 50ML Syringe) 25-50ML OF 50% DW IV FOR... UD PRN IV 08/26/17 15:45 09/25/17 15:44 Glucagon (Glucagon Inj) 1 mg UD PRN SQ 08/26/17 15:45 09/25/17 15:44 Magnesium Oxide (Mag-Ox Tab) 400 mg HS PO 08/26/17 19:00 09/25/17 18:59 08/26/17 19:04 400 MG Heparin Sodium (Porcine) (Heparin Sq 5000 Unit/0.5ml) 5,000 unit Q8 SQ 08/27/17 06:00 09/26/17 05:59 08/27/17 05:41 5,000 UNIT Potassium Chloride/Sodium Chloride 1,000 ml @ 75 mls/hr [id number] IV 08/27/17 03:15 08/27/17 15:14 08/27/17 03:45 75 MLS/HR Insulin Aspart (novoLOG ASPART) SLIDING SCALE Q4H SC 08/27/17 08:00 09/26/17 07:59 Miscellaneous (Insulin Protocol Goal Range (Other)) 1 ea ONE ONCE N/A 08/27/17 07:30 08/27/17 07:31 UNV Metoprolol Tartrate (Lopressor Tab) 12.5 mg BID PO 08/27/17 09:00 09/26/17 08:59 Vital Signs: Date Time Temp Pulse Resp B/P (MAP) Pulse Ox O2 Delivery O2 Flow Rate FiO2 08/27/17 06:31 97 13 156/79 (104) 98 08/27/17 06:30 91 15 97 08/27/17 06:02 92 16 158/80 (106) 99 08/27/17 06:01 92 13 170/80 (110) 97 08/27/17 06:00 87 15 97 08/27/17 05:30 77 18 122/74 (90) 95 08/27/17 05:00 78 16 154/79 (104) 96 08/27/17 04:30 79 18 151/77 (101) 96 08/27/17 04:10 96 Room Air 08/27/17 04:00 82 20 133/73 (93) 93 08/27/17 04:00 36.7 81 16 133/73 (93) 93 Room Air 08/27/17 03:30 81 20 131/71 (91) 94 08/27/17 03:00 81 16 161/79 (106) 97 08/27/17 02:48 83 17 169/88 (115) 97 08/27/17 02:31 86 16 167/85 (112) 97 08/27/17 02:30 85 18 97 08/27/17 02:00 82 20 137/76 (96) 96 08/27/17 01:30 84 17 152/82 (105) 96 08/27/17 01:00 96 21 167/91 (116) 97 08/27/17 00:54 36.8 85 14 155/87 (109) 97 Room Air 08/27/17 00:05 85 14 155/87 (109) 97 08/27/17 00:00 36.8 87 19 155/87 (109) 97 08/26/17 23:59 96 Room Air 08/26/17 23:26 189/104 (132) 08/26/17 22:37 91 20 185/111 (135) 08/26/17 22:00 91 19 166/87 (113) 96 08/26/17 21:45 87 15 148/72 (97) 96 08/26/17 21:30 85 16 172/87 (115) 96 08/26/17 21:15 82 18 160/85 (110) 96 08/26/17 21:00 87 27 148/85 (106) 95 08/26/17 20:45 82 22 160/90 (113) 95 08/26/17 20:30 86 19 160/85 (110) 96 08/26/17 20:30 36.9 86 19 160/85 (110) 96 Room Air 08/26/17 20:16 87 16 157/90 (112) 97 08/26/17 20:00 98 Room Air 08/26/17 20:00 93 25 129/87 (101) 96 08/26/17 19:45 86 21 151/86 (107) 99 08/26/17 19:30 90 15 168/93 (118) 97 08/26/17 19:30 90 15 168/93 (118) 97 08/26/17 19:15 92 18 172/91 (118) 97 08/26/17 19:00 92 18 159/93 (115) 98 08/26/17 18:45 91 16 170/92 (118) 97 08/26/17 18:41 87 16 184/99 (127) 97 08/26/17 18:15 91 17 172/96 (121) 96 08/26/17 18:01 97 15 177/95 (122) 97 08/26/17 17:57 36.8 90 16 194/100 95 Room Air 08/26/17 17:45 94 17 194/100 (131) 98 08/26/17 17:31 100 17 184/104 (130) 08/26/17 17:15 96 18 189/97 (127) 97 08/26/17 17:00 97 17 179/103 (128) 98 08/26/17 16:46 102 17 196/115 (142) 08/26/17 16:32 36.8 95 19 216/111 (146) 96 Room Air 3/30/18 16:20 98 Room Air 08/26/17 16:01 91 18 191/101 97 Room Air 08/26/17 16:00 92 24 97 Room Air 08/26/17 15:55 92 16 198/98 97 Room Air 08/26/17 15:50 89 16 205/98 97 Room Air 08/26/17 15:45 92 18 203/109 97 Room Air 08/26/17 15:40 90 16 198/105 98 Room Air 08/26/17 15:35 90 16 191/103 97 Room Air 08/26/17 15:30 93 21 206/112 98 Room Air 08/26/17 15:25 90 18 198/107 98 Room Air 08/26/17 15:20 89 19 208/107 98 Room Air 08/26/17 15:15 89 16 202/115 97 Room Air 08/26/17 15:10 211/111 08/26/17 15:07 87 16 97 Room Air 08/26/17 15:05 202/125 08/26/17 15:02 87 18 97 Room Air 08/26/17 15:00 214/123 08/26/17 14:57 86 22 98 Room Air 08/26/17 14:56 88 16 232/127 98 Room Air 08/26/17 14:34 87 18 240/132 95 Room Air 08/26/17 12:58 217/118 08/26/17 12:48 92 18 148/136 95 Room Air 08/26/17 12:33 92 18 237/148 98 Room Air 08/26/17 12:25 111 18 263/139 08/26/17 12:17 104 08/26/17 11:45 98 Room Air 08/26/17 11:08 36.9 124 18 253/144 98 Room Air Laboratory Results: Last 24 Hours Test 08/26/17 11:45 08/26/17 11:48 08/26/17 11:50 08/26/17 11:52 Bedside Glucose 576 mg/dl Bedside Prothrombin Time INR 1.0 Osmolality 334 mOsm/kg White Blood Count 7.36 K/uL Red Blood Count 5.19 M/uL Hemoglobin 15.0 g/dL Hematocrit 40.1 % Mean Corpuscular Volume 77.3 fL Mean Corpuscular Hemoglobin 28.9 pg Mean Corpuscular Hemoglobin Concent 37.4 g/dl Platelet Count 215 K/uL Mean Platelet Volume 9.6 fL Neutrophils (%) (Auto) 75.7 % Lymphocytes (%) (Auto) 18.5 % Monocytes (%) (Auto) 3.5 % Eosinophils (%) (Auto) 1.5 % Basophils (%) (Auto) 0.5 % Neutrophils # (Auto) 5.57 K/uL Lymphocytes # (Auto) 1.36 K/uL Monocytes # (Auto) 0.26 K/uL Eosinophils # (Auto) 0.11 K/uL Basophils # (Auto) 0.04 K/uL RDW Standard Deviation 33.6 fL RDW Coefficient of Variation 12.0 % Immature Granulocyte % (Auto) 0.3 % Immature Granulocyte # (Auto) 0.02 K/uL Prothrombin Time 9.8 SECONDS Prothromb Time International Ratio 0.9 Activated Partial Thromboplast Time 25.1 SECONDS Partial Thromboplastin Ratio 1.0 Sodium Level 127 mmol/L Potassium Level 3.3 mmol/L Chloride Level 91 mmol/L Carbon Dioxide Level 21 mmol/L Anion Gap 15.0 mmol/L Blood Urea Nitrogen 73 mg/dl Creatinine 3.33 mg/dl Est Creatinine Clear Calc Drug Dose 21.6 ml/min Estimated GFR () 17.6 Estimated GFR (Non- 15.2 BUN/Creatinine Ratio 22.0 Random Glucose 565 mg/dl Calcium Level 9.6 mg/dl Magnesium Level 2.1 mg/dl Troponin I 0.039 ng/ml Beta-Hydroxybutyric Acid 10.47 mg/dL Test 08/26/17 13:28 08/26/17 14:56 08/26/17 16:32 08/26/17 16:33 Venous Blood pH 7.29 7.32 Venous Blood Partial Pressure CO2 51 mmHg Venous Blood Partial Pressure O2 21 mmHg Venous Blood HCO3 24 mmol/L Venous Blood Oxygen Saturation < 60.0 % Venous Blood Base Excess -2.6 mEq/L Bedside Glucose 448 mg/dl Sodium Level 131 mmol/L Potassium Level 3.2 mmol/L Chloride Level 99 mmol/L Carbon Dioxide Level 21 mmol/L Anion Gap 11.0 mmol/L Blood Urea Nitrogen 70 mg/dl Creatinine 3.17 mg/dl Est Creatinine Clear Calc Drug Dose 22.7 ml/min Estimated GFR () 18.7 Estimated GFR (Non- 16.2 BUN/Creatinine Ratio 22.1 Random Glucose 403 mg/dl Calcium Level 9.4 mg/dl Phosphorus Level 3.4 mg/dl Magnesium Level 1.9 mg/dl Troponin I 0.072 ng/ml Beta-Hydroxybutyric Acid 5.50 mg/dL Test 08/26/17 16:36 08/26/17 17:30 08/26/17 18:33 08/26/17 19:28 Bedside Glucose 447 mg/dl 381 mg/dl 352 mg/dl 362 mg/dl Test 08/26/17 20:09 08/26/17 20:33 08/26/17 21:33 08/26/17 22:02 Venous Blood pH 7.38 Sodium Level 132 mmol/L Potassium Level 3.9 mmol/L Chloride Level 101 mmol/L Carbon Dioxide Level 24 mmol/L Anion Gap 7.0 mmol/L Blood Urea Nitrogen 67 mg/dl Creatinine 3.04 mg/dl Est Creatinine Clear Calc Drug Dose 23.7 ml/min Estimated GFR () 19.7 Estimated GFR (Non- 17.0 BUN/Creatinine Ratio 22.1 Random Glucose 314 mg/dl Calcium Level 8.9 mg/dl Phosphorus Level 2.7 mg/dl Magnesium Level 2.1 mg/dl Beta-Hydroxybutyric Acid 0.99 mg/dL Bedside Glucose 295 mg/dl 255 mg/dl 234 mg/dl Test 08/26/17 23:31 08/27/17 00:17 08/27/17 00:34 08/27/17 02:07 Bedside Glucose 131 mg/dl 140 mg/dl 212 mg/dl Venous Blood pH 7.38 Sodium Level 137 mmol/L Potassium Level 3.6 mmol/L Chloride Level 105 mmol/L Carbon Dioxide Level 21 mmol/L Anion Gap 11.0 mmol/L Blood Urea Nitrogen 63 mg/dl Creatinine 2.79 mg/dl Est Creatinine Clear Calc Drug Dose 25.9 ml/min Estimated GFR () 21.9 Estimated GFR (Non- 18.9 BUN/Creatinine Ratio 22.7 Random Glucose 138 mg/dl Calcium Level 9.0 mg/dl Phosphorus Level 3.2 mg/dl Magnesium Level 2.2 mg/dl Troponin I 0.079 ng/ml Test 08/27/17 05:31 08/27/17 07:21 White Blood Count 8.93 K/uL Red Blood Count 4.39 M/uL Hemoglobin 12.6 g/dL Hematocrit 34.9 % Mean Corpuscular Volume 79.5 fL Mean Corpuscular Hemoglobin 28.7 pg Mean Corpuscular Hemoglobin Concent 36.1 g/dl Platelet Count 211 K/uL Mean Platelet Volume 9.4 fL Neutrophils (%) (Auto) 53.9 % Lymphocytes (%) (Auto) 38.3 % Monocytes (%) (Auto) 5.6 % Eosinophils (%) (Auto) 1.7 % Basophils (%) (Auto) 0.4 % Neutrophils # (Auto) 4.81 K/uL Lymphocytes # (Auto) 3.42 K/uL Monocytes # (Auto) 0.50 K/uL Eosinophils # (Auto) 0.15 K/uL Basophils # (Auto) 0.04 K/uL RDW Standard Deviation 35.8 fL RDW Coefficient of Variation 12.4 % Immature Granulocyte % (Auto) 0.1 % Immature Granulocyte # (Auto) 0.01 K/uL Sodium Level 136 mmol/L Potassium Level 4.1 mmol/L Chloride Level 106 mmol/L Carbon Dioxide Level 21 mmol/L Anion Gap 9.0 mmol/L Blood Urea Nitrogen 60 mg/dl Creatinine 2.94 mg/dl Est Creatinine Clear Calc Drug Dose 24.6 ml/min Estimated GFR () 20.5 Estimated GFR (Non- 17.7 BUN/Creatinine Ratio 20.4 Random Glucose 244 mg/dl Estimated Average Glucose 407 mg/dl Hemoglobin A1c 15.8 % Calcium Level 9.0 mg/dl Magnesium Level 2.2 mg/dl Troponin I 0.061 ng/ml Triglycerides Level 858 mg/dl Cholesterol Level 304 mg/dl HDL Cholesterol 29 mg/dl LDL Cholesterol, Calculated mg/dl VLDL Cholesterol, Calculated mg/dl Cholesterol/HDL Ratio 10.5 Bedside Glucose 183 mg/dl
[2017-08-27] MEDS: ASPIRIN 325 MG ECTAB PO SCH (07:54)
[2017-08-27] MEDS: ATORVASTATIN 40 MG TAB PO SCH (07:54)
[2017-08-27] MEDS ORDERED: ASPIRIN 81 MG ECTAB PO SCH (09:00)
[2017-08-27] MEDS ORDERED: ENOXAPARIN 30 MG/0.3 ML SYR SQ SCH (09:00)
[2017-08-27] MEDS ORDERED: METOPROLOL TARTRATE 25 MG TAB PO SCH ×2 (09:00→21:00)
[2017-08-27] MEDS ORDERED: PANTOprazole INJ 40 MG in SYRINGE 0 ML IV SCH (09:00)
[2017-08-27] MEDS ORDERED: PERFLUTREN LIPID MICROSPHERE (DEFINITY) IV ONE (09:34)
--- NOTE | 2017-08-27 10:26 | ECHOCARDIOGRAM REPORT ---
*NOTICE TO RECEIVING REPUBLICAN AGENCY This information is strictly Confidential and protected under [place] law. [place] law prohibits you from making any further disclosure of this information unless further disclosure is expressly permitted by the written consent of the person to whom it pertains or is authorized by law. A general authorization for the release of medical or other information is not sufficient for this purpose. Hospital accepts no responsibility if the information is made available to any other person, INCLUDING THE PATIENT. Interpretation Summary * Name: TRESSA MORENO Study Date: 08/27/2017 07:01 AM BP: 156/79 mmHg * Patient Location: .MSICU\[id number]\E106\S\1 HR: 97 * : 1965 (M/d/yyyy) Gender: Female Height: 66 in * Age: 52 yrs Ethnicity: CA Weight: 180 lb * Ordering Physician: Bre Sparrow * Referring Physician: Self, Referred * Performed By: Elke Etienne RDCS * * Reason For Study: Cerebral ischemia/embolus * BSA: 1.9 m2 * -- Conclusions -- * Normal LV chamber size with mild concentric LVH. * Normal LV systolic function, EF 55-60%. * No segmental left ventricular wall motion abnormalities are noted. * Grade I diastolic dysfunction. * Mild mitral annular calcifications. * The interatrial septum bows toward right atrium consistent with elevated left atrial pressure. Procedure Details * A complete two-dimensional transthoracic echocardiogram was performed (2D, M-mode, Doppler and color flow Doppler). * A saline contrast injection was performed to assess for cardiac shunting. * The injection was performed through an intravenous line in the left arm. * The attending nurse who injected the saline contrast was Alonzo Shepherd RN. * A total of 20 cc of agitated saline was given. * A contrast injection of Definity was performed to improve assessment of LV function. * Contrast was injected into an intravenous site in the left arm. * One vial of Definity ultrasound contrast was diluted in normal saline to a total volume of 10 ml. A total of '2' ml of solution was administered during imaging. * Lot # [id number] of Definity utilized for procedure. * Expiration date sep 15. * The attending nurse who injected the contrast agent was Alonzo Shepherd RN. Left Ventricle * The left ventricle is normal in size. * There is mild concentric left ventricular hypertrophy. * Ejection Fraction = 55-60%. * Left ventricular systolic function is normal. * No segmental left ventricular wall motion abnormalities are noted. * The left ventricular wall motion is normal. Right Ventricle * The right ventricular cavity size is normal (basal dimension <4.2 cm in right ventricular apical 4-chamber view). * The right ventricular systolic function is normal as assessed by tricuspid annular plane systolic excursion (TAPSE) (normal >1.5 cm). Atria * The left atrial size is normal. * Right atrial size is normal. * No ASD detected; PFO is not assessed. * The interatrial septum bows toward right atrium consistent with elevated left atrial pressure. Mitral Valve * There is mild mitral annular calcification. * There is no mitral valve stenosis. * There is no mitral regurgitation noted. Tricuspid Valve * The tricuspid valve is normal in structure and function. Aortic Valve * The aortic valve is normal in structure and function. Pulmonic Valve * The pulmonary valve is not well seen, but the Doppler examination is normal without significant regurgitation or stenosis. Great Vessels * The aortic root and proximal ascending aorta are normal sized. Pericardium/Pleural * There is no pericardial effusion. Left Ventricular Diastolic Function * Grade I diastolic dysfunction, (abnormal relaxation pattern). MMode 2D Measurements and Calculations IVSd 1.3 cm LVIDd 4.3 cm LVIDs 3.2 cm LVPWd 1.5 cm IVS/LVPW 0.87 FS 26.0 % EDV(Teich) 83.3 ml ESV(Teich) 40.6 ml EF(Teich) 51.3 % EDV(cubed) 79.7 ml ESV(cubed) 32.4 ml EF(cubed) 59.4 % LV mass(C)d 230.9 grams LV mass(C)dI 120.7 grams/m\S\2 SV(Teich) 42.7 ml SI(Teich) 22.3 ml/m\S\2 SV(cubed) 47.4 ml SI(cubed) 24.8 ml/m\S\2 Ao root diam 2.8 cm Ao root area 6.4 cm\S\2 ACS 1.8 cm LA dimension 3.0 cm asc Aorta Diam 2.5 cm LA/Ao 1.1 LVOT diam 1.8 cm LVOT area 2.6 cm\S\2 LVAd ap4 26.2 cm\S\2 LVLd ap4 7.9 cm EDV(MOD-sp4) 71.7 ml EDV(sp4-el) 73.8 ml LVAs ap4 17.0 cm\S\2 LVLs ap4 7.4 cm ESV(MOD-sp4) 35.7 ml ESV(sp4-el) 33.4 ml EF(MOD-sp4) 50.2 % EF(sp4-el) 54.7 % LVAd ap2 25.5 cm\S\2 LVLd ap2 7.2 cm EDV(MOD-sp2) 73.2 ml EDV(sp2-el) 76.5 ml LVAs ap2 17.0 cm\S\2 LVLs ap2 6.9 cm ESV(MOD-sp2) 37.0 ml ESV(sp2-el) 35.7 ml EF(MOD-sp2) 49.5 % EF(sp2-el) 53.3 % LVLd %diff -9.79 % EDV(MOD-bp) 76.4 ml LVLs %diff -6.84 % ESV(MOD-bp) 37.6 ml EF(MOD-bp) 50.8 % SV(MOD-sp4) 36.0 ml SI(MOD-sp4) 18.8 ml/m\S\2 SV(MOD-sp2) 36.2 ml SI(MOD-sp2) 18.9 ml/m\S\2 SV(MOD-bp) 38.8 ml SI(MOD-bp) 20.3 ml/m\S\2 SV(sp4-el) 40.4 ml SI(sp4-el) 21.1 ml/m\S\2 SV(sp2-el) 40.8 ml SI(sp2-el) 21.3 ml/m\S\2 Doppler Measurements and Calculations MV E max emi 88.8 cm/sec MV A max emi 119.8 cm/sec MV E/A 0.74 MV dec time 0.26 sec Ao V2 max 145.5 cm/sec Ao max PG 8.5 mmHg Ao max PG (full) 5.3 mmHg DIONNE(V,A) 1.6 cm\S\2 DIONNE(V,D) 1.6 cm\S\2 LV V1 max PG 3.2 mmHg LV V1 max 88.8 cm/sec PA V2 max 104.5 cm/sec PA max PG 4.4 mmHg PA acc slope 657.0 cm/sec\S\2 PA acc time 0.14 sec TR max emi 116.2 cm/sec PA pr(Accel) 17.2 mmHg
--- NOTE | 2017-08-27 11:45 | CONSULTATION REPORT ---
DATE OF CONSULTATION: 08/27/2017 REQUESTING PHYSICIAN: Dr. Dobbs. 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 About 2 days ago, she developed some slurring of her speech but did not think this was significant and drove down here to see her daughter. Apparently, as time went on, the slurring became a little worse, there may have been a little clumsiness to the right hand, although she denies this now and she presented to the Emergency Room, had a series of laboratory studies done, was noted to be incredibly hypertensive. Her hemoglobin A1c was well over 10, her glucose level was elevated, and subsequent imaging studies have shown a series of small lacunar strokes deep in the right hemisphere in the appropriate location to explain her symptoms and revealed evidence for her prior CVA of 11 years ago, essentially being a mirror image of the current deficits on the contralateral side. She is now in the ICU, being treated by Dr. Cary. Her blood pressure is coming down but it is certainly less than optimal and she has been placed back on her aspirin, which she admittedly was noncompliant with it. She was noncompliant with any of her other medications. She has had type 2 diabetes for years, takes metformin episodically. She has been a longstanding hypertensive and in fact had a hypertensive crisis with a right hemiparesis issue 11 years ago. She has had a section. Otherwise, she denies any major health issues. MEDICATIONS: She theoretically is on a combination of metformin, AKOSUA inhibitors, thiazide, diuretic and 325 mg of aspirin a day. She admits, however, that she really does not take these very often, but in the past few days, she has been a little more compliant. ALLERGIES: SHE HAS ALLERGIES TO TRIMETHOPRIM SULFA. FAMILY HISTORY: Strongly positive for diabetes, hypertension and heart disease. SOCIAL HISTORY: Reveals her to be a nonsmoker, nonconsumer of ethanol. 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 She has had stable weight. She has not had any recent hospitalization. She has had no new issues referable to head, eyes, ears, nose and throat, cardiovascular, pulmonary, gastrointestinal, or genitourinary systems, and neurologically, her deficits now are limited to articulation and she denies any sensory deficits and the deficits that stem from the prior CVA involving her left hand have largely resolved. PHYSICAL EXAMINATION: VITAL SIGNS: Blood pressure was 217/118, pulse was 92 and regular, respirations were 18, she was afebrile. GENERAL: She was moderately over nourished, otherwise appeared to be in no acute distress. Her speech was dysarthric. Ocular fundi were poorly seen. Eye movements were normal. Facial motility and strength were normal with the exception of right upper motor neuron facial paresis. LUNGS: Clear. HEART: Had a regular rhythm. No murmurs were appreciated. ABDOMEN: Soft and nontender. EXTREMITIES: Free of edema with good peripheral pulses. NEUROLOGIC: Today, neurologic examination again reveals normal ocular movements, normal visual alan, dysarthric speech pattern without any aphasia. Normal facial sensation. Tongue protruding in the midline and a soft right upper motor neuron facial paresis. There was no drift, pronation sign, tremor, tics or choreiform activity. Tone was normal in the upper extremities. Reflexes were normally active. Toes were downgoing. No Shannan signs were seen. Strength testing was normal and sensation was intact to all primary modalities including vibration and light touch. Again, laboratory studies have been unremarkable with the exception of the elevated glucose, the elevated hemoglobin A1c, elevated cholesterol and triglycerides, and imaging studies have shown essentially normal extracranial circulation involving the cervical vessels, the intracranial vessels, and a 2D echo shows no evidence for potential embolic source but does show some LVH. Imaging of the brain does show the punctate areas of infarction deep in the right capsular area, likely due to involvement of a single perforating vessel supplying that zone. There is also evidence for prior infarctions, essentially being mirror images of the current ones on the contralateral basal ganglia area. Rest of the imaging studies unremarkable. I have discussed this case with Dr. Cary today. Plan is to get her blood pressure under control and to release her on only aspirin which she was noncompliant with. This woman's history of compliance with medications makes me lean toward using a single higher dose antiplatelet agent rather than the standard combination of aspirin and Plavix we would normally recommend. She is more likely to take a single aspirin than 2 pills for the same purpose. Hopefully, she will get a primary care physician other than herself and a little more compliant with followup on her glucose levels, her hemoglobin A1c and more importantly her hypertension. I will check back with her tomorrow as I am not sure when she is going be discharged but do not feel that there is going to be in any great change in her overall status between now and then and I suspect that her speech will persist for at least several more weeks in this dysarthric fashion.
[2017-08-27] MEDS ORDERED: METOPROLOL TARTRATE 25 MG TAB PO ONE (12:00)
--- NOTE | 2017-08-27 12:15 | Pharmacy Progress Note ---
Pharmacy Glycemic Short Note 2 Date of Service Aug 27, 2017. OUTPATIENT ANTIDIABETIC REGIMEN: * Metformin 1,000mg PO BIDM ASSESSMENT: * 52yo poorly controlled T2DM female per A1c = 15.8% today. Pt will need insulin at discharge. * Pt initiated on IV insulin infusion on admission for severe hyperglycemia. * Pt was transitioned from IV insulin infusion to SQ basal bolus around 0200 this morning as patient was not agreeable to frequency of BSG checks. BSG was trending downwards at that time. * Will continue SQ basal bolus insulin regimen and titrate to maintain BSG 110- 179 mg/dl. Reasonable to maintain BSGs ~ 200-250mg/dl for the next 24hrs as to not precipitate retinal issues associated with dropping BSG too dramatically when A1c is extremely elevated. PLAN FOR INPATIENT GLYCEMIC CONTROL: * Hold outpatient oral diabetes medications * May not be reasonable to continue metformin at discharge depending on how Scr /CrCl trends for the rest of the admission * Basal insulin: weight and stress of 3 (full 24hr dose x 1) * Lantus 40 units SQ daily - will give additional dose of 10 units this evening if BSG >200 mg/dl * Bolus insulin: weight and stress of 3 * NovoLog per scale ACHS or Q6hrs while NPO * Goal Range: Low 120 mg/dL - High 160 mg/dL * Correction Factor: 20 mg/dL/unit * Nutritional / Prandial insulin per carb ratio of 1 unit per 6 grams CHO consumed PLAN FOR DISCHARGE: * A1c >10% (15.8% on 08/27/17) * Pt will need combination injection therapy at discharge. Doses TBD closer to discharge.
--- NOTE | 2017-08-27 18:01 | Progress Note ---
Internal Med Progress Note Date of Service: Aug 27, 2017. Provider Documentation: SUBJECTIVE: still has some slurred speech swallowing ok denies any chest pain or sob no nausea resting comfortably no weakness or numbness in extremities OBJECTIVE: Vital Signs-as noted below Exam: General-alert and oriented. Not in distress ENT-Normal hearing Neck-no neck masses Lungs-cta b/l no wheezing no crackles present Heart-S1 and S2 heard regular rate and rhythm no murmurs Abdomen-Soft bowel sounds present non tender no distension Extremities-no edema no erythema Neuro-alert and awake, speech dysarthric moves extremities power 5/5 in all extremities coordination of movements slime heel to odonnell test normal Lab data as noted below. 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 Hypertensive emergency: -Evidence of end organ damage to neuro, nephro systems BPon presentation 253/144 received IV labetalol in ED. Decreased to 217/118 currently on nicardipine drip Lopressor and amlodipine close monitor in ICU appreciate critical care help CVA Dysarthria: CT head no acute findings MRI showed small acute to subacute lacunar infarcts identified in the left ramirez radiata and the left basal ganglia MRa brain and neck unremarkable echo unremarkable to continue aspirin and high dose statin appreciate neurology inputs DKA: Non-compliance with home meds was on Insulin infusion protocol resolved currently on lantus and iss hba1c 15.8 diabetic education pharmacy consult close monitor MEGHAN on CKD stage? No baseline known presented with Cr 3.3 cr 2.9 today Hyponatremia: Pseudohyponatremia in setting of hyperglycemia resolved Hypertriglyceridemia Hypercholesterolemia on high dose stain needs to be compliant with meds needs close f/u. Dispo: Not to drive until cleared by neurologist or PCP PT, OT, speech evals ordered per stroke set protocol close monitor in ICU Vital Signs: Date Time Temp Pulse Resp B/P (MAP) Pulse Ox O2 Delivery O2 Flow Rate FiO2 08/28/17 09:00 67 16 153/91 (111) 96 Room Air 08/28/17 08:30 82 19 165/98 (120) 95 08/28/17 08:00 36.9 100 20 175/97 (123) 96 Room Air 08/28/17 08:00 Room Air 08/28/17 06:00 85 20 185/105 (131) 96 Room Air 08/28/17 04:00 68 20 159/94 (115) 95 Room Air 08/28/17 04:00 Room Air 08/28/17 00:01 70 18 116/56 (76) 98 Room Air 08/27/17 23:59 Room Air 08/27/17 22:00 76 18 163/80 (107) 95 Room Air 08/27/17 20:00 76 18 163/80 (107) 95 Room Air 08/27/17 20:00 Room Air 08/27/17 18:00 92 18 173/100 (124) 97 Room Air 08/27/17 17:00 95 19 193/107 (135) 97 08/27/17 16:00 36.6 81 18 172/107 (128) 98 Room Air 08/27/17 16:00 Room Air 08/27/17 14:01 78 96 08/27/17 14:00 80 16 167/94 (118) 97 Room Air 08/27/17 12:31 87 16 158/75 (102) 96 Room Air 08/27/17 12:00 Room Air 08/27/17 12:00 36.8 84 18 174/88 (116) 98 Room Air 08/27/17 11:30 94 20 202/117 (145) 97 Room Air 08/27/17 10:00 88 19 190/126 (147) 97 Room Air Lab Results: Results Past 24 Hours Test 08/27/17 11:20 08/27/17 16:09 08/27/17 20:14 08/27/17 23:35 Range/Units Bedside Glucose 245 222 193 177 70-90 mg/dl Test 08/28/17 04:00 08/28/17 05:35 08/28/17 07:20 Range/Units Bedside Glucose 156 166 70-90 mg/dl White Blood Count 9.18 4.8-10.8 K/uL Red Blood Count 4.90 4.2-5.4 M/uL Hemoglobin 13.7 12.0-16.0 g/dL Hematocrit 39.8 37-47 % Mean Corpuscular Volume 81.2 80-100 fL Mean Corpuscular Hemoglobin 28.0 25-34 pg Mean Corpuscular Hemoglobin Concent 34.4 32-36 g/dl Platelet Count 250 130-400 K/uL Mean Platelet Volume 9.3 7.4-10.4 fL Neutrophils (%) (Auto) 55.8 % Lymphocytes (%) (Auto) 33.9 % Monocytes (%) (Auto) 6.6 % Eosinophils (%) (Auto) 3.1 % Basophils (%) (Auto) 0.4 % Neutrophils # (Auto) 5.12 1.4-6.5 K/uL Lymphocytes # (Auto) 3.11 1.2-3.4 K/uL Monocytes # (Auto) 0.61 0.11-0.59 K/uL Eosinophils # (Auto) 0.28 0-0.5 K/uL Basophils # (Auto) 0.04 0-0.2 K/uL RDW Standard Deviation 36.8 36.4-46.3 fL RDW Coefficient of Variation 12.4 11.5-14.5 % Immature Granulocyte % (Auto) 0.2 % Immature Granulocyte # (Auto) 0.02 0.00-0.02 K/uL Sodium Level 135 136-145 mmol/L Potassium Level 4.0 3.5-5.1 mmol/L Chloride Level 105 98-107 mmol/L Carbon Dioxide Level 25 21-32 mmol/L Anion Gap 5.0 3-11 mmol/L Blood Urea Nitrogen 49 7-18 mg/dl Creatinine 2.99 0.60-1.20 mg/dl Est Creatinine Clear Calc Drug Dose 24.1 ml/min Estimated GFR () 20.1 Estimated GFR (Non- 17.3 BUN/Creatinine Ratio 16.2 10-20 Random Glucose 169 70-99 mg/dl Calcium Level 9.0 8.5-10.1 mg/dl Phosphorus Level 3.8 2.5-4.9 mg/dl Magnesium Level 2.5 1.8-2.4 mg/dl
[2017-08-27] MEDS: MAGNESIUM OXIDE 400 MG TAB PO SCH (20:23)
[2017-08-28] VITALS (18 sets, daily range): BP systolic 116–185; BP diastolic 56–110; PULSE 66–100; TEMP 36.6–36.9; O2SAT 94–98
[2017-08-28] MEDS: INSULIN ASPART 100 UNITS/ML 3 ML PEN SC SCH ×6 (04:00→23:39)
[2017-08-28 05:46] LABS: BASO % 0.4 %; BASO ABS # 0.04 K/uL (0-0.2); EOS % 3.1 %; EOS ABS # 0.28 K/uL (0-0.5); HEMATOCRIT 39.8 % (37-47); HEMOGLOBIN 13.7 g/dL (12.0-16.0); IG# 0.02 K/uL (0.00-0.02); LYMPH % 33.9 %; LYMPH ABS # 3.11 K/uL (1.2-3.4); MEAN CELL VOLUME 81.2 fL (80-100); MEAN CORPUSCULAR HGB CONC 34.4 g/dl (32-36); MEAN PLATELET VOLUME 9.3 fL (7.4-10.4); MONO % 6.6 %; MONO ABS # 0.61 K/uL (0.11-0.59); NEUT % 55.8 %; NEUT ABS # 5.12 K/uL (1.4-6.5); PLATELET COUNT 250 K/uL (130-400); RED CELL DISTRIBUTION WIDTH CV 12.4 % (11.5-14.5); RED CELL DISTRIBUTION WIDTH SD 36.8 fL (36.4-46.3); WHITE BLOOD COUNT 9.18 K/uL (4.8-10.8)
[2017-08-28] MEDS: NiCARDipine IV 25 MG in SODIUM CHLORIDE 0.9% 250ML 240 ML IV PRN (05:51)
[2017-08-28] MEDS: HEPARIN SOD 5000 UNIT/0.5 ML CARP SQ SCH ×3 (05:52→21:17)
[2017-08-28 06:27] LABS: CREATININE 2.99 mg/dl (0.60-1.20); PHOSPHORUS 3.8 mg/dl (2.5-4.9)
[2017-08-28] MEDS ORDERED: CONSULT PHARMACY STA (07:26)
[2017-08-28] MEDS ORDERED: HydrALAZINE HCL 20 MG/ML VIAL IV. PRN (07:30)
[2017-08-28] MEDS ORDERED: PRAZOSIN HCL 1 MG CAP PO ONE (07:45)
[2017-08-28] MEDS: ASPIRIN 325 MG ECTAB PO SCH (07:53)
[2017-08-28] MEDS: AMLODIPINE BESYLATE 5 MG TAB PO SCH (07:54)
[2017-08-28] MEDS: ATORVASTATIN 40 MG TAB PO SCH (07:55)
[2017-08-28] MEDS: METOPROLOL TARTRATE 50 MG TAB PO SCH ×2 (07:56→20:18)
--- NOTE | 2017-08-28 08:02 | Critical Care Progress Note ---
Critical Care Progress Note Date of Service Aug 28, 2017. ICU Day ICU Day Number: [address] Cary Subjective No overnight events No new complaints No chest pain no shortness of breath Objective General: Alert. nontoxic. Skin: Warm, dry, Head: Atraumatic Ears, nose, mouth and throat: airway patent Cardiovascular: Normal peripheral perfusion Respiratory: no respiratory distress Gastrointestinal: Non distended Musculoskeletal: No deformity Assessment & Plan PLAN: Neuro: New subacute CVA -Likely hypertensive in origin -Neurology consult -Blood pressure control Previous CVA -Continue antiplatelet therapy -Blood pressure control CV: Malignant hypertension -Increased metoprolol to 50 mg metoprolol -Increased amlodipine to 10 mg daily -Restart 10 mg AKOSUA inhibitor -Continue to monitor creatinine, potassium within normal limits suspect progression of hypertensive kidney disease -Add prazosin 1 mg twice daily -10 mg hydralazine IV as needed systolic blood pressure greater than 180 -My goal is to discontinue the IV nicardipine today insert second I suspect the patient's hypertension will be rather difficult to control and will require multiple agents given its long-standing nature Cardiac risk factor stratification: Hypertriglyceridemia Hypercholesterolemia -High-dose statin therapy, atorvastatin 80 mg daily -Troponins peaked -Continue antiplatelet therapy -Encouraged lifestyle modifications Fluids/Renal: Diabetic ketoacidosis: Resolved -Transitioned to subcutaneous insulin Acute kidney injury -Serum creatinine 3.3 decrease to 2.94 -Strict I's and O's GI/Nutrition: Patient not experiencing nausea and vomiting will start regular diet that is AHA heart healthy type II diabetic with low sodium. -No indication for PPI at this time Heme: Heparin 5000 units every 8 hours secondary to renal insufficiency Endocrine: Hyperglycemia, DKA protocol -Insulin infusion discontinued transition to subcu insulin -A1c: 15.8 -ict educator consult, glycemic control consult with pharmacy Patient remains critically ill secondary to requiring intravenous antihypertensives to maintain adequate control I have personally spent 40 minutes of critical care time in the direct management of this patient. This is a life/limb threatening event. This includes time spent evaluating patient, direct bedside care, chart review, placing orders, interpretation of diagnostic studies, discussion with consultants, patient, and/or family members regarding treatment decisions, as well as other required patient management activities. This time is exclusive of all separately billable procedures, and teaching time and separate from and in addition to any other critical care service time. Data Medications: Current Inpatient Medications Medications (Trade) Dose Ordered Sig/Neha Route Start Time Stop Time Status Last Admin Dose Admin Acetaminophen (Tylenol Tab) 650 mg Q4H PRN PO 08/26/17 14:00 09/25/17 13:59 Nitroglycerin (Nitrostat Tab) 0.4 mg UD PRN SL 08/26/17 14:00 09/25/17 13:59 Atorvastatin Calcium (Lipitor Tab) 80 mg QAM PO 08/27/17 09:00 09/26/17 08:59 08/27/17 07:54 80 MG Miscellaneous Information (Pharmacist Discharge Med Rec Consult) 1 ea UD PRN N/A 08/26/17 14:15 09/25/17 14:14 Aspirin (Ecotrin Tab) 325 mg DAILY PO 08/27/17 09:00 09/26/17 08:59 08/27/17 07:54 325 MG Miscellaneous Information (Consult Glycemic Management Pharmacy) 1 ea UD PRN N/A 08/26/17 14:40 09/25/17 14:39 Nicardipine HCl 25 mg/Sodium Chloride 250 ml @ 0 mls/hr Q0M PRN IV 08/26/17 14:36 09/25/17 14:35 08/28/17 05:51 50 MLS/HR Glucose (Glucose 40% Gel) 15-30 GRAMS 15 GRAMS... UD PRN PO 08/26/17 15:45 09/25/17 15:44 Glucose (Glucose Chew Tab) 4-8 Tablets 4 Tabl... UD PRN PO 08/26/17 15:45 09/25/17 15:44 Dextrose (Dextrose 50% 50ML Syringe) 25-50ML OF 50% DW IV FOR... UD PRN IV 08/26/17 15:45 09/25/17 15:44 Glucagon (Glucagon Inj) 1 mg UD PRN SQ 08/26/17 15:45 09/25/17 15:44 Magnesium Oxide (Mag-Ox Tab) 400 mg HS PO 08/26/17 19:00 09/25/17 18:59 08/27/17 20:23 400 MG Heparin Sodium (Porcine) (Heparin Sq 5000 Unit/0.5ml) 5,000 unit Q8 SQ 08/27/17 06:00 09/26/17 05:59 08/28/17 05:52 5,000 UNIT Insulin Aspart (novoLOG ASPART) SLIDING SCALE Q4H SC 08/27/17 08:00 09/26/17 07:59 08/27/17 23:39 1 UNITS Amlodipine Besylate (Norvasc Tab) 10 mg QAM PO 08/28/17 09:00 09/27/17 08:59 Metoprolol Tartrate (Lopressor Tab) 50 mg BID PO 08/28/17 09:00 09/26/17 08:59 Lisinopril (Zestril Tab) 10 mg QAM PO 08/28/17 09:00 09/27/17 08:59 Insulin Glargine (Lantus Solostar Pen) 50 units DAILY SC 08/28/17 09:00 09/27/17 08:59 Hydralazine HCl (HydrALAZINE INJ) 10 mg Q4H PRN IV. 08/28/17 07:30 09/27/17 07:29 Prazosin HCl (Prazosin) 1 mg BID PO 08/28/17 21:00 09/27/17 20:59 Vital Signs: Date Time Temp Pulse Resp B/P (MAP) Pulse Ox O2 Delivery O2 Flow Rate FiO2 08/28/17 06:00 85 20 185/105 (131) 96 Room Air 08/28/17 04:00 68 20 159/94 (115) 95 Room Air 08/28/17 04:00 Room Air 08/28/17 00:01 70 18 116/56 (76) 98 Room Air 08/27/17 23:59 Room Air 08/27/17 22:00 76 18 163/80 (107) 95 Room Air 08/27/17 20:00 76 18 163/80 (107) 95 Room Air 08/27/17 20:00 Room Air 08/27/17 18:00 92 18 173/100 (124) 97 Room Air 08/27/17 17:00 95 19 193/107 (135) 97 08/27/17 16:00 36.6 81 18 172/107 (128) 98 Room Air 08/27/17 16:00 Room Air 08/27/17 14:01 78 96 08/27/17 14:00 80 16 167/94 (118) 97 Room Air 08/27/17 12:31 87 16 158/75 (102) 96 Room Air 08/27/17 12:00 Room Air 08/27/17 12:00 36.8 84 18 174/88 (116) 98 Room Air 08/27/17 11:30 94 20 202/117 (145) 97 Room Air 08/27/17 10:00 88 19 190/126 (147) 97 Room Air 08/27/17 09:00 78 16 185/99 (127) 97 Room Air 08/27/17 08:00 Room Air 08/27/17 08:00 36.9 97 13 196/107 (136) 98 Room Air Laboratory Results: Last 24 Hours Test 08/27/17 11:20 08/27/17 16:09 08/27/17 20:14 08/27/17 23:35 Bedside Glucose 245 mg/dl 222 mg/dl 193 mg/dl 177 mg/dl Test 08/28/17 04:00 08/28/17 05:35 08/28/17 07:20 Bedside Glucose 156 mg/dl 166 mg/dl White Blood Count 9.18 K/uL Red Blood Count 4.90 M/uL Hemoglobin 13.7 g/dL Hematocrit 39.8 % Mean Corpuscular Volume 81.2 fL Mean Corpuscular Hemoglobin 28.0 pg Mean Corpuscular Hemoglobin Concent 34.4 g/dl Platelet Count 250 K/uL Mean Platelet Volume 9.3 fL Neutrophils (%) (Auto) 55.8 % Lymphocytes (%) (Auto) 33.9 % Monocytes (%) (Auto) 6.6 % Eosinophils (%) (Auto) 3.1 % Basophils (%) (Auto) 0.4 % Neutrophils # (Auto) 5.12 K/uL Lymphocytes # (Auto) 3.11 K/uL Monocytes # (Auto) 0.61 K/uL Eosinophils # (Auto) 0.28 K/uL Basophils # (Auto) 0.04 K/uL RDW Standard Deviation 36.8 fL RDW Coefficient of Variation 12.4 % Immature Granulocyte % (Auto) 0.2 % Immature Granulocyte # (Auto) 0.02 K/uL Sodium Level 135 mmol/L Potassium Level 4.0 mmol/L Chloride Level 105 mmol/L Carbon Dioxide Level 25 mmol/L Anion Gap 5.0 mmol/L Blood Urea Nitrogen 49 mg/dl Creatinine 2.99 mg/dl Est Creatinine Clear Calc Drug Dose 24.1 ml/min Estimated GFR () 20.1 Estimated GFR (Non- 17.3 BUN/Creatinine Ratio 16.2 Random Glucose 169 mg/dl Calcium Level 9.0 mg/dl Phosphorus Level 3.8 mg/dl Magnesium Level 2.5 mg/dl
[2017-08-28] MEDS ORDERED: INSULIN GLARGINE SOLOSTAR 100 UNITS/ML 3 ML PEN SC SCH ×2 (09:00)
[2017-08-28] MEDS ORDERED: LISINOPRIL 10 MG TAB PO SCH (09:00)
--- NOTE | 2017-08-28 10:55 | Pharmacy Progress Note ---
Pharmacy Glycemic Short Note 2 Date of Service Aug 28, 2017. OUTPATIENT ANTIDIABETIC REGIMEN: * Metformin 1,000mg PO BIDM Item Value Date Time Bedside Glucose 247 mg/dl H 08/27/17 0535 Bedside Glucose 183 mg/dl H 08/27/17 0721 Bedside Glucose 245 mg/dl H 08/27/17 1120 Bedside Glucose 222 mg/dl H 08/27/17 1609 Bedside Glucose 193 mg/dl H 08/27/172013 Bedside Glucose 177 mg/dl H 08/27/17 2335 Bedside Glucose 156 mg/dl H 08/28/17 0400 Bedside Glucose 166 mg/dl H 08/28/17 0720 ASSESSMENT: * 52yo poorly controlled T2DM female per A1c = 15.8% today. Pt will need insulin at discharge. * 08/26/17: Pt initiated on IV insulin infusion on admission for severe hyperglycemia. * 08/27/17: Pt was transitioned from IV insulin infusion to SQ basal bolus. Pt received 77 units of SQ insulin * 50 units of basal insulin with Lantus * 27 units of prandial/correctional insulin with NovoLog (minimal CHO intake with meals) * 08/28/17: * AM fasting BSG = 166 mg/dl. This is near goal range, expect BSG to continue to trend downwards with repeated dosing and once steady state is reached. * Difficult to evaluate NovoLog CHO parameters as PO intake has been minimal. No change needed at this time. Will tighten parameters if BSGs trend upwards throughout the day. * Will continue SQ basal bolus insulin regimen and titrate to maintain BSG 110- 179 mg/dl. Reasonable to maintain BSGs ~ 200-250mg/dl for the next 24hrs as to not precipitate retinal issues associated with dropping BSG too dramatically when A1c is extremely elevated. PLAN FOR INPATIENT GLYCEMIC CONTROL: * Hold outpatient oral diabetes medications * May not be reasonable to continue metformin at discharge depending on how Scr /CrCl trends for the rest of the admission * Basal insulin: * Lantus 50 units SQ daily * Bolus insulin: weight and stress of 3 * NovoLog per scale Q4hrs while in ICU * Goal Range: Low 120 mg/dL - High 160 mg/dL * Correction Factor: 20 mg/dL/unit * Nutritional / Prandial insulin per carb ratio of 1 unit per 6 grams CHO consumed PLAN FOR DISCHARGE: * A1c >10% (15.8% on 08/27/17) * Pt will need combination injection therapy at discharge. Doses TBD closer to discharge.
--- NOTE | 2017-08-28 18:06 | PROGRESS NOTE ---
DATE: 08/28/2017 SUBJECTIVE: Sunita is a little worse today. Her speech is more dysarthric. She still has word finding issues and is little more right facial asymmetric and paresis. Still no sensory loss. No involvement of the right arm or leg and otherwise she feels well. Her blood pressure is finally coming down. The last recorded levels were between 125 and 132 systolic and between 62 and 71 diastolic. We have discontinued. She will probably go home on whatever medication combinations are producing this. For now, I am not going to reimage her as I think this is a normal evolution of the small deep lacunar type infarctions. Whether this is true increase in the area of ischemia or edema around the areas of infarction is something that we cannot tell at this point. The issue is academic. We would not do anything more than use antiplatelet drugs, and I suspect that in the next few days, her speech will begin to clear up a bit if indeed edema is the cause. We may end up doing a second imaging study in a few days if she decline significantly or fails to improve significantly, but for now, I think we can defer on this as it is not going to really change what we do clinically. I would check back with her tomorrow. REAGAN
--- NOTE | 2017-08-28 18:21 | Progress Note ---
Internal Med Progress Note Date of Service: Aug 28, 2017. Provider Documentation: SUBJECTIVE: patient speech is more dysarthric today swallowing ok no weakness in extremities no chest pain or sob no nausea\ BP improving OBJECTIVE: Vital Signs-as noted below Exam: General-alert and oriented. Not in distress ENT-Normal hearing Neck-no neck masses Lungs-cta b/l no wheezing no crackles present Heart-S1 and S2 heard regular rate and rhythm no murmurs Abdomen-Soft bowel sounds present non tender no distension Extremities-no edema no erythema Neuro-alert and awake, speech dysarthric moves extremities power 5/5 in all extremities coordination of movements slime no pronator drift heel to odonnell test normal position sense intact Lab data as noted below. 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 MRI showed acute/subacute CVA. Neurology on board and recommends high dose and statin. Poorly controlled DM with hba1c 15.8. Needs to be on insulin on discharge. Dysarthria worse today but mostly from edema and may get better. Close monitor . If worsens plan for repeat imaging studies. Continue to monitor. Hypertensive emergency: -Evidence of end organ damage to neuro, nephro systems BP on presentation 253/144 received IV labetalol in ED. Decreased to 217/118 was on nicardipine drip which is stopped today currently on Lopressor, amlodipine, prazosin and lisinopril Continue close monitor in ICU appreciate critical care help CVA Dysarthria: CT head no acute findings MRI showed small acute to subacute lacunar infarcts identified in the left ramirez radiata and the left basal ganglia MRa brain and neck unremarkable echo unremarkable to continue aspirin and high dose statin dysarthria somewhat worse today_ expanding ischemia vs edema but no further imaging studies for now as per neurology most likely may improved in few days if continue to worsen or not improving neuro contemplating repeat mri in next few days appreciate neurology inputs DKA: Non-compliance with home meds was on Insulin infusion protocol resolved currently on lantus and iss hba1c 15.8 diabetic education pharmacy consult to d/c on Lantus and NovoLog close monitor MEGHAN on CKD stage? No baseline known presented with Cr 3.3 cr 2.9 today Hyponatremia: Pseudohyponatremia in setting of hyperglycemia resolved Hypertriglyceridemia Hypercholesterolemia on high dose stain needs to be compliant with meds needs close f/u. Dispo: Not to drive until cleared by neurologist or PCP PT, OT, speech evals ordered per stroke set protocol close monitor in ICU Vital Signs: Date Time Temp Pulse Resp B/P (MAP) Pulse Ox O2 Delivery O2 Flow Rate FiO2 08/28/17 18:00 86 13 164/88 (113) 97 Room Air 08/28/17 16:00 36.6 69 20 132/63 (86) 96 Room Air 08/28/17 16:00 Room Air 08/28/17 14:00 88 19 131/84 (100) 97 Room Air 08/28/17 13:30 79 23 129/71 (90) 97 Room Air 08/28/17 12:30 73 17 125/62 (83) 96 Room Air 08/28/17 12:00 Room Air 08/28/17 12:00 36.8 73 17 125/62 (83) 96 Room Air 08/28/17 10:30 80 20 163/110 (127) 98 Room Air 08/28/17 10:00 79 18 131/71 (91) 94 Room Air 08/28/17 09:30 66 12 143/82 (102) 95 Room Air 08/28/17 09:00 67 16 153/91 (111) 96 Room Air 08/28/17 08:30 82 19 165/98 (120) 95 08/28/17 08:00 36.9 100 20 175/97 (123) 96 Room Air 08/28/17 08:00 Room Air 08/28/17 06:00 85 20 185/105 (131) 96 Room Air 08/28/17 04:00 68 20 159/94 (115) 95 Room Air 08/28/17 04:00 Room Air 08/28/17 00:01 70 18 116/56 (76) 98 Room Air 08/27/17 23:59 Room Air 08/27/17 22:00 76 18 163/80 (107) 95 Room Air 08/27/17 20:00 76 18 163/80 (107) 95 Room Air 08/27/17 20:00 Room Air Lab Results: Results Past 24 Hours Test 08/27/17 20:14 08/27/17 23:35 08/28/17 04:00 08/28/17 05:35 Range/Units Bedside Glucose 193 177 156 70-90 mg/dl White Blood Count 9.18 4.8-10.8 K/uL Red Blood Count 4.90 4.2-5.4 M/uL Hemoglobin 13.7 12.0-16.0 g/dL Hematocrit 39.8 37-47 % Mean Corpuscular Volume 81.2 80-100 fL Mean Corpuscular Hemoglobin 28.0 25-34 pg Mean Corpuscular Hemoglobin Concent 34.4 32-36 g/dl Platelet Count 250 130-400 K/uL Mean Platelet Volume 9.3 7.4-10.4 fL Neutrophils (%) (Auto) 55.8 % Lymphocytes (%) (Auto) 33.9 % Monocytes (%) (Auto) 6.6 % Eosinophils (%) (Auto) 3.1 % Basophils (%) (Auto) 0.4 % Neutrophils # (Auto) 5.12 1.4-6.5 K/uL Lymphocytes # (Auto) 3.11 1.2-3.4 K/uL Monocytes # (Auto) 0.61 0.11-0.59 K/uL Eosinophils # (Auto) 0.28 0-0.5 K/uL Basophils # (Auto) 0.04 0-0.2 K/uL RDW Standard Deviation 36.8 36.4-46.3 fL RDW Coefficient of Variation 12.4 11.5-14.5 % Immature Granulocyte % (Auto) 0.2 % Immature Granulocyte # (Auto) 0.02 0.00-0.02 K/uL Sodium Level 135 136-145 mmol/L Potassium Level 4.0 3.5-5.1 mmol/L Chloride Level 105 98-107 mmol/L Carbon Dioxide Level 25 21-32 mmol/L Anion Gap 5.0 3-11 mmol/L Blood Urea Nitrogen 49 7-18 mg/dl Creatinine 2.99 0.60-1.20 mg/dl Est Creatinine Clear Calc Drug Dose 24.1 ml/min Estimated GFR () 20.1 Estimated GFR (Non- 17.3 BUN/Creatinine Ratio 16.2 10-20 Random Glucose 169 70-99 mg/dl Calcium Level 9.0 8.5-10.1 mg/dl Phosphorus Level 3.8 2.5-4.9 mg/dl Magnesium Level 2.5 1.8-2.4 mg/dl Test 08/28/17 07:20 08/28/17 11:27 08/28/17 16:22 Range/Units Bedside Glucose 166 170 115 70-90 mg/dl
[2017-08-28] MEDS: MAGNESIUM OXIDE 400 MG TAB PO SCH (20:18)
[2017-08-28] MEDS: PRAZOSIN HCL 1 MG CAP PO SCH (20:18)
[2017-08-28] MEDS ORDERED: DiphenhydrAMINE HCL 50 MG/ML VIAL ONE (23:04)
[2017-08-28] MEDS ORDERED: METHYLPREDNISOLONE IV 125 MG in SYRINGE 0 ML IV STA (23:11)
[2017-08-28] MEDS ORDERED: DiphenhydrAMINE INJ 50 MG in SYRINGE 0 ML IV STA (23:11)
[2017-08-28] MEDS ORDERED: METHYLPREDNISOLONE 125 MG VIAL IV STA (23:37)
--- NOTE | 2017-08-28 23:45 | Critical Care Progress Note ---
Critical Care Progress Note Date of Service Aug 28, 2017. Critical Care Progress Note Sunita Thomas complains this evening of enlarging tongue that is affecting her ability to handle secretions. She denies trouble breathing or shortness of breath on room air with saturations >95%. Her blood pressures remain < 180. I find no change of mental status or unilateral changes on physical exam. Her tongue appears mildly enlarged on physical exam. Lungs are CTA bilaterally and no stridor is present. Pt does confirm that she is a full code should she decline from a respiratory stand point. At this time I have ordered Diphenhydramine 50mg IV and Methylprednisolone 125mg IV. Pt states she did consent to blood products though I find no consent on chart. Should she decompensate and require [facility], [facility]. . I do not see a reason to rescan pt at this time. Blood pressure prior to administration of IV Benadryl was 150's. Will continue to monitor closely on telemetry. pt remains stable. I have also spoken at length with pts in the room who is a rehabilitation physician. He and the pt (a [employer]) are currently satisfied with the plan and appreciative of the care offered at this time. Both are now resting in the room. In the event of unlikely decompensation, I have reviewed the anesthesia call schedule and determined that Dr. Adolph Castro is call should we need to contact him for emergent intubation. I have provided her nurse with his contact information. Additional Critical Care time: 30 minutes
[2017-08-29] VITALS (8 sets, daily range): BP systolic 120–185; BP diastolic 62–97; PULSE 76–102; TEMP 36.8; O2SAT 91–97; Ht 167.6 cm; Wt 82.9 kg
[2017-08-29] MEDS: INSULIN ASPART 100 UNITS/ML 3 ML PEN SC SCH ×3 (04:00→12:00)
[2017-08-29 05:44] LABS: BASO % 0.3 %; BASO ABS # 0.02 K/uL (0-0.2); EOS % 0.3 %; EOS ABS # 0.02 K/uL (0-0.5); HEMATOCRIT 39.3 % (37-47); HEMOGLOBIN 13.2 g/dL (12.0-16.0); IG# 0.03 K/uL (0.00-0.02); LYMPH % 10.8 %; LYMPH ABS # 0.86 K/uL (1.2-3.4); MEAN CELL VOLUME 82.4 fL (80-100); MEAN CORPUSCULAR HEMOGLOBIN 27.7 pg (25-34); MEAN CORPUSCULAR HGB CONC 33.6 g/dl (32-36); MEAN PLATELET VOLUME 9.4 fL (7.4-10.4); MONO ABS # 0.08 K/uL (0.11-0.59); NEUT % 87.2 %; NEUT ABS # 6.93 K/uL (1.4-6.5); PLATELET COUNT 224 K/uL (130-400); RED CELL DISTRIBUTION WIDTH CV 12.5 % (11.5-14.5); RED CELL DISTRIBUTION WIDTH SD 37.5 fL (36.4-46.3); WHITE BLOOD COUNT 7.94 K/uL (4.8-10.8)
[2017-08-29] MEDS: HEPARIN SOD 5000 UNIT/0.5 ML CARP SQ SCH (05:58)
[2017-08-29 06:17] LABS: CALCIUM 9.4 mg/dl (8.5-10.1); POTASSIUM 4.4 mmol/L (3.5-5.1)
[2017-08-29 06:20] LABS: CREATININE 3.46 mg/dl (0.60-1.20)
[2017-08-29] MEDS: ATORVASTATIN 40 MG TAB PO SCH ×2 (07:36→09:38)
[2017-08-29] MEDS: ASPIRIN 325 MG ECTAB PO SCH ×2 (07:36→09:38)
[2017-08-29] MEDS: AMLODIPINE BESYLATE 5 MG TAB PO SCH ×2 (07:37→09:38)
[2017-08-29] MEDS: METOPROLOL TARTRATE 50 MG TAB PO SCH ×2 (07:37→09:38)
[2017-08-29] MEDS: PRAZOSIN HCL 1 MG CAP PO SCH ×2 (07:37→09:38)
[2017-08-29] MEDS ORDERED: INSULIN GLARGINE SOLOSTAR 100 UNITS/ML 3 ML PEN SC SCH (09:00)
[2017-08-29] MEDS ORDERED: INSULIN GLARGINE SOLOSTAR 100 UNITS/ML 3 ML PEN SC ONE (09:15)
--- NOTE | 2017-08-29 09:55 | DIAGNOSTIC IMAGING REPORT ---
MRI OF THE BRAIN WITHOUT CONTRAST CLINICAL HISTORY: Stroke. New onset A. Fib patient. NEW ONSET Aphasia. HYPERTENSION EMERGENCY COMPARISON STUDY: 08/26/2017 FINDINGS: Sagittal T1, axial diffusion, proton density and T2 weighted axial, coronal FLAIR, and axial T1-weighted images were acquired. No intra or extra-axial mass lesions are visualized There are persistent foci restricted water diffusion involving the left basal ganglia and left ramirez radiata. There is a new 5 mm focus of restricted water diffusion just deep to the left insular cortex. The findings are consistent with slight infarct extension. There is no evidence of ventricular dilatation. Proton density T2-weighted and FLAIR images reveal moderate foci of increased T2 signal within the white matter, likely on a small vessel basis. In addition there are scattered lacunar infarcts present. There are no abnormal flow voids. IMPRESSION: 1. New 5 mm acute infarct located just deep to the left insular cortex. 2. Additional acute/subacute infarcts in the region the left basal ganglia and ramirez radiata are again visualized 3. No MRI evidence of hemorrhage. No evidence of hydrocephalus. Electronically signed by: Peter Naqvi M.D. 08/29/2017 9:54 AM Dictated Date/Time: 08/29/2017 9:46 AM
[2017-08-29] MEDS: METHYLPREDNISOLONE IV 40 MG in SYRINGE 0 ML IV SCH ×2 (10:25→13:05)
--- NOTE | 2017-08-29 10:50 | Progress Note ---
Medicine Progress Note Date & Time of Visit: Aug 29, 2017 at 10:38. Subjective events overnight noted this morning, patient was noted to have increased expressive aphasia/dysarthria stat MRI showed new 5mm infarct L insular cortex on exam, patient awake, alert, oriented severe dysarthria/aphasia writes on the clipboard to answer questions denies chest pain, headache, dizziness, nausea no other new focal deficits aside from severe dysarthria/aphasia no other symptoms Objective Last 8 Hrs Date Time Temp Pulse Resp B/P (MAP) Pulse Ox O2 Delivery O2 Flow Rate FiO2 08/29/17 10:00 98 16 151/83 (105) 95 Room Air 08/29/17 08:00 36.8 87 14 185/95 (125) 97 Room Air 08/29/17 06:00 91 18 94 08/29/17 04:00 95 Room Air 08/29/17 04:00 81 18 138/73 (94) 93 Room Air Physical Exam: General- oriented x 3, not in distress, speaks in sentences with no effort Head- atraumatic Eyes- PERRL, EOMI, anicteric ENT- oropharynx clear Neck- supple, no JVD, no adenopathy, no thyromegaly; carotids +2/2 Lungs- clear breath sounds bilaterally, no rales/wheezes Heart- regular rhythm; no murmur, normal rate Abdomen- normal bowel sounds, soft, nontender, no masses Extremities- no pretibial edema, no calf tenderness; peripheral pulses intact Neuro- alert, oriented x 3; PERRL, EOMI; (+) left facial droop; (+) dysarthria; motor 5/5 bilaterally; sensation 100% bilaterally Skin- warm & dry Laboratory Results: Last 24 Hours Test 08/28/17 11:27 08/28/17 16:22 08/28/17 20:12 08/28/17 23:16 Bedside Glucose 170 mg/dl 115 mg/dl 84 mg/dl 91 mg/dl Test 08/29/17 04:02 08/29/17 05:30 Bedside Glucose 147 mg/dl White Blood Count 7.94 K/uL Red Blood Count 4.77 M/uL Hemoglobin 13.2 g/dL Hematocrit 39.3 % Mean Corpuscular Volume 82.4 fL Mean Corpuscular Hemoglobin 27.7 pg Mean Corpuscular Hemoglobin Concent 33.6 g/dl Platelet Count 224 K/uL Mean Platelet Volume 9.4 fL Neutrophils (%) (Auto) 87.2 % Lymphocytes (%) (Auto) 10.8 % Monocytes (%) (Auto) 1.0 % Eosinophils (%) (Auto) 0.3 % Basophils (%) (Auto) 0.3 % Neutrophils # (Auto) 6.93 K/uL Lymphocytes # (Auto) 0.86 K/uL Monocytes # (Auto) 0.08 K/uL Eosinophils # (Auto) 0.02 K/uL Basophils # (Auto) 0.02 K/uL RDW Standard Deviation 37.5 fL RDW Coefficient of Variation 12.5 % Immature Granulocyte % (Auto) 0.4 % Immature Granulocyte # (Auto) 0.03 K/uL Sodium Level 136 mmol/L Potassium Level 4.4 mmol/L Chloride Level 106 mmol/L Carbon Dioxide Level 18 mmol/L Anion Gap 12.0 mmol/L Blood Urea Nitrogen 52 mg/dl Creatinine 3.46 mg/dl Est Creatinine Clear Calc Drug Dose 20.9 ml/min Estimated GFR () 16.8 Estimated GFR (Non- 14.5 BUN/Creatinine Ratio 15.1 Random Glucose 192 mg/dl Calcium Level 9.4 mg/dl Phosphorus Level 4.0 mg/dl Magnesium Level 2.7 mg/dl Assessment & Plan Per hospitalist Dr. 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 MRI showed acute/subacute CVA. Neurology on board and recommends high dosestatin. Poorly controlled DM with hba1c 15.8. Needs to be on insulin on discharge. Dysarthria worse today but mostly from edema and may get better. Close monitor . If worsens plan for repeat imaging studies. CVA 08/26: MRI showed small acute to subacute lacunar infarcts identified in the left ramirez radiata and the left basal ganglia MRA brain and neck unremarkable echo grade 2 diastolic CHF - Neurology consulted continue aspirin and added high dose statin 08/28: dysarthria somewhat worse: expanding ischemia vs edema but no further imaging studies for now as per neurology 08/29: repeat MRI Brain: 1. New 5 mm acute infarct located just deep to the left insular cortex. 2. Additional acute/subacute infarcts in the region the left basal ganglia and ramirez radiata are again visualized -- discussed with Dr. Barron- In[employer] C[employer]rer, recommend transfer to [facility] Level [facility] Care discussed with Dr. Cheek- Neurologist in [place], he kindly accepted the patient for transfer recommend to start: Plavix 300mg one dose now NSS at 100cc/hr maintain BP at 180/100, wean off Nicardipine drip Hypertensive emergency: -Evidence of end organ damage to neuro, nephro systems BP on presentation 253/144 received IV labetalol in ED. Decreased to 217/118 placed on Nicardipine drip added Lopressor, amlodipine, prazosin -- maintain BP 180/[address] Cheek DKA: Non-compliance with home meds was on Insulin infusion protocol resolved currently on lantus and iss hba1c 15.8 diabetic education pharmacy consult to d/c on Lantus and NovoLog MEGHAN on CKD stage? No baseline known presented with Cr 3.3 cr 3.4 today monitor closely Hyponatremia: Pseudohyponatremia in setting of hyperglycemia resolved Hypertriglyceridemia Hypercholesterolemia TG 858 on high dose stain needs to be compliant with meds needs close f/u. Dispo: transfer to [facility] Current Inpatient Medications: Current Inpatient Medications Medications (Trade) Dose Ordered Sig/Neha Route Start Time Stop Time Status Last Admin Dose Admin Acetaminophen (Tylenol Tab) 650 mg Q4H PRN PO 08/26/17 14:00 09/25/17 13:59 Nitroglycerin (Nitrostat Tab) 0.4 mg UD PRN SL 08/26/17 14:00 09/25/17 13:59 Atorvastatin Calcium (Lipitor Tab) 80 mg QAM PO 08/27/17 09:00 09/26/17 08:59 08/28/17 07:55 80 MG Miscellaneous Information (Pharmacist Discharge Med Rec Consult) 1 ea UD PRN N/A 08/26/17 14:15 09/25/17 14:14 Aspirin (Ecotrin Tab) 325 mg DAILY PO 08/27/17 09:00 09/26/17 08:59 08/28/17 07:53 325 MG Miscellaneous Information (Consult Glycemic Management Pharmacy) 1 ea UD PRN N/A 08/26/17 14:40 09/25/17 14:39 Nicardipine HCl 25 mg/Sodium Chloride 250 ml @ 0 mls/hr Q0M PRN IV 08/26/17 14:36 09/25/17 14:35 08/28/17 05:51 50 MLS/HR Glucose (Glucose 40% Gel) 15-30 GRAMS 15 GRAMS... UD PRN PO 08/26/17 15:45 09/25/17 15:44 Glucose (Glucose Chew Tab) 4-8 Tablets 4 Tabl... UD PRN PO 08/26/17 15:45 09/25/17 15:44 Dextrose (Dextrose 50% 50ML Syringe) 25-50ML OF 50% DW IV FOR... UD PRN IV 08/26/17 15:45 09/25/17 15:44 Glucagon (Glucagon Inj) 1 mg UD PRN SQ 08/26/17 15:45 09/25/17 15:44 Magnesium Oxide (Mag-Ox Tab) 400 mg HS PO 08/26/17 19:00 09/25/17 18:59 08/28/17 20:18 400 MG Heparin Sodium (Porcine) (Heparin Sq 5000 Unit/0.5ml) 5,000 unit Q8 SQ 08/27/17 06:00 09/26/17 05:59 08/29/17 05:58 5,000 UNIT Insulin Aspart (novoLOG ASPART) SLIDING SCALE Q4H SC 08/27/17 08:00 09/26/17 07:59 08/29/17 07:42 2 UNITS Amlodipine Besylate (Norvasc Tab) 10 mg QAM PO 08/28/17 09:00 09/27/17 08:59 08/28/17 07:54 10 MG Metoprolol Tartrate (Lopressor Tab) 50 mg BID PO 08/28/17 09:00 09/26/17 08:59 08/28/17 20:18 50 MG Hydralazine HCl (HydrALAZINE INJ) 10 mg Q4H PRN IV. 08/28/17 07:30 09/27/17 07:29 Prazosin HCl (Prazosin) 1 mg BID PO 08/28/17 21:00 09/27/17 20:59 08/28/17 20:18 1 MG Insulin Glargine (Lantus Solostar Pen) 35 units DAILY SC 08/29/17 09:00 09/28/17 08:59 08/29/17 07:45 35 UNITS Methylprednisolone Sodium Succinate 40 mg/Syringe 0.64 ml @ 1.5 mls/min Q4H IV 08/29/17 09:30 08/29/17 21:31 08/29/17 10:25 1.5 MLS/MIN
[2017-08-29] MEDS ORDERED: CLOPIDOGREL BISULFATE 300 MG TAB PO SCH (11:00)
[2017-08-29] MEDS ORDERED: NVLGIPEN SC (11:04)
[2017-08-29] MEDS ORDERED: LPT40 PO (11:04)
[2017-08-29] MEDS ORDERED: HPRIS5M SQ (11:04)
[2017-08-29] MEDS ORDERED: NRV5 PO (11:04)
[2017-08-29] MEDS ORDERED: PRZ1 PO (11:04)
[2017-08-29] MEDS ORDERED: METO50TA16 PO (11:04)
[2017-08-29] MEDS ORDERED: INSDGIPEN SC (11:04)
--- NOTE | 2017-08-29 11:07 | Discharge Instructions ---
Discharge Instructions Date of Service Aug 29, 2017. Admission Reason for Admission: Dysarthria, Hypertensive Emergency Discharge Discharge Diagnosis / Problem: ACUTE CVA Discharge Goals Goal(s): Diagnostic testing, Therapeutic intervention Activity Recommendations Activity Level: Assistance Required Therapies: Physical Therapy, Occupational Therapy, Speech Therapy . Additional Information Patient informed of condition: Yes Advance Directives: No (UNKNOWN) DNR: No (PATIENT IS A FULL CODE) Level of Care: Other ([facility]) Communicable Disease: No Prognosis: Other (GUARDED) Instructions / Follow-Up Instructions / Follow-Up PLEASE REFER TO SEPARATE MEDICAL RECONCILIATION SHEET FOR UPDATED MEDICATION LIST AND ACCOMPANYING HOSPITAL DISCHARGE SUMMARY FOR FURTHER DETAILS. Current Hospital Diet Patient's current hospital diet: AHA Diet (Heart Healthy), Diabetes Type 2 Diet , Low Sodium Diet (2gm Na) Discharge Diet Recommended Diet: AHA Diet (Heart Healthy), Diabetes Type 2 Diet Pending Studies Studies pending at discharge: yes List of pending studies: FURTHER MANAGEMENT PER [facility] Physician Orders On Transfer Special Precautions: PLEASE REFER TO SEPARATE MEDICAL RECONCILIATION SHEET FOR UPDATED MEDICATION LIST AND ACCOMPANYING HOSPITAL DISCHARGE SUMMARY FOR FURTHER DETAILS. Laboratory Results Hemoglobin A1c Test 08/27/17 05:31 Range/Units Estimated Average Glucose 407 mg/dl Hemoglobin A1c 15.8 H 4.5-5.6 % Lipid Panel Test 08/27/17 05:31 Range/Units Triglycerides Level 858 H 0-150 mg/dl Cholesterol Level 304 H 0-200 mg/dl HDL Cholesterol 29 mg/dl Cholesterol/HDL Ratio 10.5 LDL Cholesterol, Calculated mg/dl Medical Emergencies . Who to Call and When: Medical Emergencies: If at any time you feel your situation is an emergency, please call 911 immediately. . Non-Emergent Contact Non-Emergency issues call your: Primary Care Provider, Neurologist Call Non-Emergent contact if: you have a fever, you have any medication questions . Past History Medical & Surgical History: (1) HTN (hypertension) (2) Dysarthria (3) Hypertensive emergency (4) Diabetes mellitus, type II (5) H/O: CVA (cerebrovascular accident) (6) Hyperglycemia (7) Acute kidney injury (8) CVA (cerebral vascular accident) (9) Hyperlipidemia LDL goal <100 (10) Hypertriglyceridemia . "Provider Documentation" section prepared by Chuck Green. . Core Measure Problem Core Measures: Stroke Stroke Core Measures Reason no t-PA for Stroke: Treatment not indicated Reason no antithrom by day 2: Treatment provided - N/A Reason no antithrom at D/C: Treatment provided - N/A Reason no statin at D/C: Treatment provided - N/A Reason no anticoag w/a fib: Treatment not indicated
--- NOTE | 2017-08-29 11:11 | Discharge Summary ---
Discharge Summary Date of Service Aug 29, 2017. Discharge Summary Admission Date: Aug 26, 2017 at 13:51 Discharge Date: Aug 29, 2017 Discharge Disposition: Acute care facility Principal Diagnosis: ACUTE CVA Secondary Diagnoses/Problems: PLEASE REFER TO HOSPITAL COURSE BELOW. Procedures: MRI OF THE BRAIN WITHOUT IV CONTRAST CLINICAL HISTORY: Slurred speech. Left upper extremity numbness. COMPARISON STUDY: CT of the brain dated 08/26/2017. TECHNIQUE: MRI of the brain was performed utilizing various T1 and T2-weighted sequences in the axial, sagittal, and coronal planes. IV contrast was not administered for this examination. FINDINGS: Brain parenchyma: There are small foci of restricted diffusion identified in the left basal ganglia and the left ramirez radiata consistent with acute to subacute lacunar infarcts. No additional foci of acute ischemia are identified. There is moderate subcortical and periventricular microangiopathic disease. Chronic lacunar infarcts are identified in the right basal ganglia, the right thalamus, and the right ramirez radiata. There is no hemorrhage or mass effect. [place]-white matter differentiation is preserved. No extra-axial fluid collection is seen. The cerebellar tonsils are normal in configuration. Ventricles, sulci, and cisterns: Normal in configuration. Pituitary and sella: Partially empty sella is incidentally noted. Intracranial vasculature: Normal flow voids are maintained at the skull base. Orbits: The bony orbits are grossly intact. Orbital contents are normal in appearance. Sinuses and mastoids: Clear. Calvarium: Unremarkable. Cervical cord: Partially visualized cervical spinal cord is normal in morphology and signal intensity. IMPRESSION: 1. There are small acute to subacute lacunar infarcts identified in the left ramirez radiata and the left basal ganglia. 2. No additional foci of acute ischemia are identified. 3. There is no hemorrhage or mass effect. Electronically signed by: Bam Teague M.D. 08/26/2017 11:32 PM Dictated Date/Time: 08/26/2017 11:28 PM MR ANGIOGRAM OF THE BRAIN CLINICAL HISTORY: Stroke. COMPARISON STUDY: MRI of the brain performed concurrently on 08/26/2017. TECHNIQUE: 3-D [id number] MR angiography of the intracranial circulation is performed. 3-D tumble views are created and assessed. IV contrast was not administered for this examination. FINDINGS: The osage of De Paz is developmentally likely complete noting a large right posterior communicating artery. The internal carotid arteries are widely patent bilaterally, as are the anterior and middle cerebral arteries. The vertebrobasilar system and posterior cerebral arteries are widely patent. The vertebral arteries are codominant. There is no aneurysm, high-grade stenosis, or focal vessel cutoff seen throughout the intracranial circulation. The brain parenchyma is normal as visualized. IMPRESSION: Unremarkable MR angiogram of the brain. MR ANGIOGRAM OF THE NECK WITHOUT IV CONTRAST CLINICAL HISTORY: Stroke. COMPARISON STUDY: No priors. TECHNIQUE: Axial 3-D [id number] MR angiography of the neck is performed. Additionally, coronal unenhanced MR angiogram of the neck is performed. IV contrast was not administered for this examination. 3-D reformats are created and assessed. All measurements were calculated based on NASCET criteria. FINDINGS: Visualized portions of the thoracic aorta are normal in caliber. The right common carotid artery is widely patent, as are the right internal and external carotid arteries. The left common carotid artery is widely patent, as are the left internal and external carotid arteries. The vertebral arteries are widely patent. The vertebral arteries are codominant. IMPRESSION: Unremarkable unenhanced MR angiogram of the neck. Electronically signed by: Bam Teague M.D. 08/26/2017 11:35 PM Dictated Date/Time: 08/26/2017 11:33 PM MRI OF THE BRAIN WITHOUT CONTRAST CLINICAL HISTORY: Stroke. New onset A. Fib patient. NEW ONSET Aphasia. HYPERTENSION EMERGENCY COMPARISON STUDY: 08/26/2017 FINDINGS: Sagittal T1, axial diffusion, proton density and T2 weighted axial, coronal FLAIR, and axial T1-weighted images were acquired. No intra or extra-axial mass lesions are visualized There are persistent foci restricted water diffusion involving the left basal ganglia and left ramirez radiata. There is a new 5 mm focus of restricted water diffusion just deep to the left insular cortex. The findings are consistent with slight infarct extension. There is no evidence of ventricular dilatation. Proton density T2-weighted and FLAIR images reveal moderate foci of increased T2 signal within the white matter, likely on a small vessel basis. In addition there are scattered lacunar infarcts present. There are no abnormal flow voids. IMPRESSION: 1. New 5 mm acute infarct located just deep to the left insular cortex. 2. Additional acute/subacute infarcts in the region the left basal ganglia and ramirez radiata are again visualized 3. No MRI evidence of hemorrhage. No evidence of hydrocephalus. Electronically signed by: Peter Naqvi M.D. 08/29/2017 9:54 AM Dictated Date/Time: 08/29/2017 9:46 AM Interpretation Summary * Name: TRESSA MORENO Study Date: 08/27/2017 07:01 AM BP: 156/79 mmHg * Patient Location: [facility] [place]\\S\\[id number]\\[id number] HR: 97 * : 1965 (M/d/yyyy) Gender: Female Height: 66 in * Age: 52 yrs Ethnicity: CA Weight: 180 lb * Ordering Physician: Bre Sparrow * Referring Physician: Self, Referred * Performed By: Elke Etienne RDCS * * Reason For Study: Cerebral ischemia/embolus * BSA: 1.9 m2 * -- Conclusions -- * Normal LV chamber size with mild concentric LVH. * Normal LV systolic function, EF 55-60%. * No segmental left ventricular wall motion abnormalities are noted. * Grade I diastolic dysfunction. * Mild mitral annular calcifications. * The interatrial septum bows toward right atrium consistent with elevated left atrial pressure. Procedure Details * A complete two-dimensional transthoracic echocardiogram was performed (2D, M-mode, Doppler and color flow Doppler). * A saline contrast injection was performed to assess for cardiac shunting. * The injection was performed through an intravenous line in the left arm. * The attending nurse who injected the saline contrast was Alonzo Shepherd RN. * A total of 20 cc of agitated saline was given. * A contrast injection of Definity was performed to improve assessment of LV function. * Contrast was injected into an intravenous site in the left arm. * One vial of Definity ultrasound contrast was diluted in normal saline to a total volume of 10 ml. A total of '2' ml of solution was administered during imaging. * Lot # [id number] of Definity utilized for procedure. * Expiration date sep 15. * The attending nurse who injected the contrast agent was Alonzo Shepherd RN. Left Ventricle * The left ventricle is normal in size. * There is mild concentric left ventricular hypertrophy. * Ejection Fraction = 55-60%. * Left ventricular systolic function is normal. * No segmental left ventricular wall motion abnormalities are noted. * The left ventricular wall motion is normal. Right Ventricle * The right ventricular cavity size is normal (basal dimension <4.2 cm in right ventricular apical 4-chamber view). * The right ventricular systolic function is normal as assessed by tricuspid annular plane systolic excursion (TAPSE) (normal >1.5 cm). Atria * The left atrial size is normal. * Right atrial size is normal. * No ASD detected; PFO is not assessed. * The interatrial septum bows toward right atrium consistent with elevated left atrial pressure. Mitral Valve * There is mild mitral annular calcification. * There is no mitral valve stenosis. * There is no mitral regurgitation noted. Tricuspid Valve * The tricuspid valve is normal in structure and function. Aortic Valve * The aortic valve is normal in structure and function. Pulmonic Valve * The pulmonary valve is not well seen, but the Doppler examination is normal without significant regurgitation or stenosis. Great Vessels * The aortic root and proximal ascending aorta are normal sized. Pericardium/Pleural * There is no pericardial effusion. Left Ventricular Diastolic Function * Grade I diastolic dysfunction, (abnormal relaxation pattern). Consultations: NEUROLOGY DR. CHEUNG, MAINTENANCE MAN DR. ARNOLD/DR. BARRON Pending Studies/Follow-Up: PLEASE REFER TO HOSPITAL COURSE BELOW. Medication Reconciliation New Medications: Amlodipine Besylate (Amlodipine Besylate) 5 Mg Tab 10 MG PO QAM for 7 Days, #14 TAB Atorvastatin (Lipitor) 40 Mg Tab 80 MG PO QAM for 7 Days, #14 TAB Heparin Sod (Porcine) (Heparin Sodium) 5,000 Unit/0.5 Ml Inj 5000 UNIT SQ Q8 for 7 Days Insulin Aspart (Novolog Flexpen) 100 Units/Ml Inj 0 UNITS SC Q4H for 7 Days Insulin Glargine (Lantus Solostar) 100 Unit/Ml Inj 35 UNITS SC DAILY for 7 Days Metoprolol Tartrate (Lopressor) (Lopressor) 50 Mg Tab 50 MG PO BID for 7 Days, #14 TAB Prazosin HCl (Prazosin HCl) 1 Mg Cap 1 MG PO BID for 7 Days, #14 CAP Continued Medications: Aspirin (Aspirin Ec) 325 Mg Tab 325 MG PO DAILY Discontinued Medications: Metformin Hcl (Glucophage) 1,000 Mg Tab 1000 MG PO BID Olmesartan/Hctz (Benicar Hct 40/12.5) 1 Ea Tab 1 TAB PO DAILY Admission Information HPI (per Admitting provider): Patient is a 52-year-old female with a past medical history of poorly controlled HTN, DM II and h/o CVA 11 years ago with residual left hand paresthesias who presents with dysarthria beginning yesterday. 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 Began to notice that her mouth "felt funny yesterday", as if her tongue was swollen, although no verbal deficits were noted until today when she began slurring her speech. Speech has improved while in ED. With previous CVA patient first noted uncontrolled HTN and dysarthria, followed by left sided weakness. Was admitted to neuro ICU at [facility] in [place] as she required a drip to control hypertension. Still has residual paresthesias in left hand. Admits that she is noncompliant with medications most of the time, but has taken a full dose aspirin, Metformin and Olmesartan-HCTZ the past 2 days. Denies any headache, visual changes, facial droop, difficulty swallowing, chest pain, shortness of breath, nausea, vomiting, abdominal pain, gait abnormalities or numbness/weakness in upper or lower extremities. Physical Exam (per Admitting): General Appearance: WD/WN, no apparent distress Head: normocephalic, atraumatic Eyes: normal inspection, PERRL, sclerae normal ENT: normal ENT inspection, hearing grossly normal, pharynx normal Neck: supple, trachea midline Respiratory/Chest: chest non-tender, lungs clear, normal breath sounds, no respiratory distress, no accessory muscle use Cardiovascular: regular rate, rhythm, no murmur, normal peripheral pulses Abdomen/GI: non tender, soft, no organomegaly Back: normal inspection Extremities/Musculoskelatal: normal inspection, no calf tenderness, no pedal edema Neurologic/Psych: 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 No facial droop, dysarthria or weakness noted ), alert, normal mood/affect, oriented x 3 Skin: normal color, warm/dry, no rash Hospital Course Per hospitalist Dr. 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 MRI showed acute/subacute CVA. Neurology on board and recommends high dosestatin. Poorly controlled DM with hba1c 15.8. Needs to be on insulin on discharge. Dysarthria worse today but mostly from edema and may get better. Close monitor . If worsens plan for repeat imaging studies. ACUTE CVA 08/26: MRI showed small acute to subacute lacunar infarcts identified in the left ramirez radiata and the left basal ganglia MRA brain and neck unremarkable echo grade 2 diastolic CHF - Neurology consulted continue aspirin and added high dose statin 08/28: dysarthria somewhat worse: expanding ischemia vs edema but no further imaging studies for now as per neurology 08/29: repeat MRI Brain: 1. New 5 mm acute infarct located just deep to the left insular cortex. 2. Additional acute/subacute infarcts in the region the left basal ganglia and ramirez radiata are again visualized -- discussed with Dr. Barron- Dust Collector Attendant, recommend transfer to [facility] Level of Care discussed with Dr. Cheek- Neurologist in [place], he kindly accepted the patient for transfer recommend to start: Plavix 300mg one dose now NSS at 100cc/hr maintain BP at 180/100, wean off Nicardipine drip Hypertensive emergency: -Evidence of end organ damage to neuro, nephro systems BP on presentation 253/144 received IV labetalol in ED. Decreased to 217/118 placed on Nicardipine drip added Lopressor, amlodipine, prazosin -- maintain BP 180/[address] Cheek DKA , DM 2 Non-compliance with home meds was on Insulin infusion protocol resolved currently on lantus and iss hba1c 15.8 diabetic education pharmacy consult to d/c on Lantus and NovoLog MEGHAN on CKD stage? No baseline known presented with Cr 3.3 cr 3.4 today monitor closely Hyponatremia: Pseudohyponatremia in setting of hyperglycemia resolved Hypertriglyceridemia Hypercholesterolemia TG 858 on high dose stain needs to be compliant with meds needs close f/u. Dispo: transfer to [facility] Total time spent on discharge = 60 MINUTES This includes examination of the patient, discharge planning, medication reconciliation, and communication with other providers. Discharge Instructions Discharge Instructions Date of Service Aug 29, 2017. Admission Reason for Admission: Dysarthria, Hypertensive Emergency Discharge Discharge Diagnosis / Problem: ACUTE CVA Discharge Goals Goal(s): Diagnostic testing, Therapeutic intervention Activity Recommendations Activity Level: Assistance Required Therapies: Physical Therapy, Occupational Therapy, Speech Therapy . Additional Information Patient informed of condition: Yes Advance Directives: No (UNKNOWN) DNR: No (PATIENT IS A FULL CODE) Level of Care: Other ([facility]) Communicable Disease: No Prognosis: Other (GUARDED) Instructions / Follow-Up Instructions / Follow-Up PLEASE REFER TO SEPARATE MEDICAL RECONCILIATION SHEET FOR UPDATED MEDICATION LIST AND ACCOMPANYING HOSPITAL DISCHARGE SUMMARY FOR FURTHER DETAILS. Current Hospital Diet Patient's current hospital diet: AHA Diet (Heart Healthy), Diabetes Type 2 Diet , Low Sodium Diet (2gm Na) Discharge Diet Recommended Diet: AHA Diet (Heart Healthy), Diabetes Type 2 Diet Pending Studies Studies pending at discharge: yes List of pending studies: FURTHER MANAGEMENT PER [facility] Physician Orders On Transfer Special Precautions: PLEASE REFER TO SEPARATE MEDICAL RECONCILIATION SHEET FOR UPDATED MEDICATION LIST AND ACCOMPANYING HOSPITAL DISCHARGE SUMMARY FOR FURTHER DETAILS. Laboratory Results Hemoglobin A1c Test 08/27/17 05:31 Range/Units Estimated Average Glucose 407 mg/dl Hemoglobin A1c 15.8 H 4.5-5.6 % Lipid Panel Test 08/27/17 05:31 Range/Units Triglycerides Level 858 H 0-150 mg/dl Cholesterol Level 304 H 0-200 mg/dl HDL Cholesterol 29 mg/dl Cholesterol/HDL Ratio 10.5 LDL Cholesterol, Calculated mg/dl Medical Emergencies . Who to Call and When: Medical Emergencies: If at any time you feel your situation is an emergency, please call 911 immediately. . Non-Emergent Contact Non-Emergency issues call your: Primary Care Provider, Neurologist Call Non-Emergent contact if: you have a fever, you have any medication questions . Past History Medical & Surgical History: (1) HTN (hypertension) (2) Dysarthria (3) Hypertensive emergency (4) Diabetes mellitus, type II (5) H/O: CVA (cerebrovascular accident) (6) Hyperglycemia (7) Acute kidney injury (8) CVA (cerebral vascular accident) (9) Hyperlipidemia LDL goal <100 (10) Hypertriglyceridemia . "Provider Documentation" section prepared by Chuck Green. . Core Measure Problem Core Measures: Stroke Stroke Core Measures Reason no t-PA for Stroke: Treatment not indicated Reason no antithrom by day 2: Treatment provided - N/A Reason no antithrom at D/C: Treatment provided - N/A Reason no statin at D/C: Treatment provided - N/A Reason no anticoag w/a fib: Treatment not indicated
--- NOTE | 2017-08-29 11:15 | Critical Care Progress Note ---
Critical Care Progress Note Date of Service Aug 29, 2017. Attending Dr. Beatrice Foster The patient was admitted to the hospital with acute CVA, it was the coronary infarct, did not qualify for TPA therapy, the patient was admitted to the ICU due to blood pressure control requiring nicardipine, yesterday the patient started on lisinopril and the patient did develop aphasia and swelling of her tongue thought to be related to angioedema, the patient was started on steroids and H1 dylon as well as H2 dylon. Her blood pressure has been in the range of 184 systolic. Her blood glucose has been better controlled. However her hemoglobin A1c was 15. Objective General: Alert. nontoxic. Skin: Warm, dry, Head: Atraumatic Ears, nose, mouth and throat: airway patent Cardiovascular: Normal peripheral perfusion Respiratory: no respiratory distress Gastrointestinal: Non distended Musculoskeletal: No deformity Today on August 29, 2017, the patient developed what appeared to be expressive aphasia, she is having more slurred speech than usual, she did have facial droop as well as proptosis on the left with drifting of the tongue towards the right. Her physical exam revealed blood pressure of 184/91, O2 saturation has been maintained, she is still controlling her airways and her O2 saturation was 96% on room air. No stridor. S1-S2 regular rate and rhythm. Distant breath sounds bilaterally. Abdomen is benign. No edema. Her neurologic exam revealed facial droop on the left as well as delayed phase of ptosis on the left. Weaker masseter muscle on the left. The rest of her neuromotor exam was unremarkable. Babinski sign was downgoing toes bilaterally. No sensational loss. Could not comment on her gait. Assessment & Plan 1. Acute CVA, NIH score is 2. Repeated MRI showed a new infarct in the basal ganglia on the left. No midline shift. Microangiopathic changes were noted on the repeat MRI. 2. 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 3. Hypertension, poorly controlled in the face of CVA. 4. Diabetes, poorly controlled with HbA1c of 15. 5. Hypercholesterolemia. 6. Angioedema secondary to administering lisinopril. Plan: 1. I will start the patient on aspirin. 2. I will start the patient on Plavix 300 mg p.o. 3. Although the patient swallowing is an issue, I would administer these medications anyway. 4. Speech pathology to evaluate the patient. 5. Physical therapy working with the patient. 6. Given the fact that the patient having recurrent CVAs, I am concerned that the patient might have had a showering emboli or she might require neuro ICU for further monitoring. In that regard, the case discussed with neurology at [facility], they accepted the patient and will transfer the patient by ambulance via air flight or ground ambulance 7. I would continue with blood pressure control and I will keep the systolic pressure around 180. In an effort to continue to perfuse the ochoa area around the CVA. 8. Glucose control. 9. I will start the patient on 4 doses of Solu-Medrol for angioedema. 10. Continue with H1 and H2 blockers. 11. Neuro check every 2 hours. Case discussed with neurology Dr. Hammonds and with Dr. Beth the principal physician on the case, discussed also with the and details and showed him the films, and the reports, discussed with the patient and with the team on rounds and details. Critical care time spent with the patient was 45 minutes Data Medications: Current Inpatient Medications Medications (Trade) Dose Ordered Sig/Neha Route Start Time Stop Time Status Last Admin Dose Admin Acetaminophen (Tylenol Tab) 650 mg Q4H PRN PO 08/26/17 14:00 09/25/17 13:59 Nitroglycerin (Nitrostat Tab) 0.4 mg UD PRN SL 08/26/17 14:00 09/25/17 13:59 Atorvastatin Calcium (Lipitor Tab) 80 mg QAM PO 08/27/17 09:00 09/26/17 08:59 08/28/17 07:55 80 MG Miscellaneous Information (Pharmacist Discharge Med Rec Consult) 1 ea UD PRN N/A 08/26/17 14:15 09/25/17 14:14 Aspirin (Ecotrin Tab) 325 mg DAILY PO 08/27/17 09:00 09/26/17 08:59 08/28/17 07:53 325 MG Miscellaneous Information (Consult Glycemic Management Pharmacy) 1 ea UD PRN N/A 08/26/17 14:40 09/25/17 14:39 Nicardipine HCl 25 mg/Sodium Chloride 250 ml @ 0 mls/hr Q0M PRN IV 08/26/17 14:36 09/25/17 14:35 08/28/17 05:51 50 MLS/HR Glucose (Glucose 40% Gel) 15-30 GRAMS 15 GRAMS... UD PRN PO 08/26/17 15:45 09/25/17 15:44 Glucose (Glucose Chew Tab) 4-8 Tablets 4 Tabl... UD PRN PO 08/26/17 15:45 09/25/17 15:44 Dextrose (Dextrose 50% 50ML Syringe) 25-50ML OF 50% DW IV FOR... UD PRN IV 08/26/17 15:45 09/25/17 15:44 Glucagon (Glucagon Inj) 1 mg UD PRN SQ 08/26/17 15:45 09/25/17 15:44 Magnesium Oxide (Mag-Ox Tab) 400 mg HS PO 08/26/17 19:00 09/25/17 18:59 08/28/17 20:18 400 MG Heparin Sodium (Porcine) (Heparin Sq 5000 Unit/0.5ml) 5,000 unit Q8 SQ 08/27/17 06:00 09/26/17 05:59 08/29/17 05:58 5,000 UNIT Insulin Aspart (novoLOG ASPART) SLIDING SCALE Q4H SC 08/27/17 08:00 09/26/17 07:59 08/29/17 07:42 2 UNITS Amlodipine Besylate (Norvasc Tab) 10 mg QAM PO 08/28/17 09:00 09/27/17 08:59 08/28/17 07:54 10 MG Metoprolol Tartrate (Lopressor Tab) 50 mg BID PO 08/28/17 09:00 09/26/17 08:59 08/28/17 20:18 50 MG Hydralazine HCl (HydrALAZINE INJ) 10 mg Q4H PRN IV. 08/28/17 07:30 09/27/17 07:29 Prazosin HCl (Prazosin) 1 mg BID PO 08/28/17 21:00 09/27/17 20:59 08/28/17 20:18 1 MG Insulin Glargine (Lantus Solostar Pen) 35 units DAILY SC 08/29/17 09:00 09/28/17 08:59 08/29/17 07:45 35 UNITS Methylprednisolone Sodium Succinate 40 mg/Syringe 0.64 ml @ 1.5 mls/min Q4H IV 08/29/17 09:30 4/2/18 21:31 08/29/17 10:25 1.5 MLS/MIN Clopidogrel Bisulfate (plAVix TAB) 300 mg NOW STAT PO 08/29/17 10:40 08/29/17 10:41 UNV Sodium Chloride 1,000 ml @ 100 mls/hr Q10H IV 08/29/17 10:45 09/28/17 10:44 UNV Vital Signs: Date Time Temp Pulse Resp B/P (MAP) Pulse Ox O2 Delivery O2 Flow Rate FiO2 08/29/17 10:00 98 16 151/83 (105) 95 Room Air 08/29/17 08:00 36.8 87 14 185/95 (125) 97 Room Air 08/29/17 08:00 97 Room Air 08/29/17 06:00 91 18 94 08/29/17 04:00 95 Room Air 08/29/17 04:00 81 18 138/73 (94) 93 Room Air 08/29/17 02:00 79 21 144/68 (93) 92 Room Air 08/29/17 01:00 77 18 122/62 (82) 91 Room Air 08/29/17 00:01 76 22 120/66 (84) 94 Room Air 08/28/17 23:59 95 Room Air 08/28/17 21:00 84 18 156/76 (102) 95 Room Air 08/28/17 20:00 94 08/28/17 20:00 36.6 91 18 168/83 (111) 95 Room Air 08/28/17 18:00 86 13 164/88 (113) 97 Room Air 08/28/17 16:00 36.6 69 20 132/63 (86) 96 Room Air 08/28/17 16:00 Room Air 08/28/17 14:00 88 19 131/84 (100) 97 Room Air 08/28/17 13:30 79 23 129/71 (90) 97 Room Air 08/28/17 12:30 73 17 125/62 (83) 96 Room Air 08/28/17 12:00 Room Air 08/28/17 12:00 36.8 73 17 125/62 (83) 96 Room Air Laboratory Results: Last 24 Hours Test 08/28/17 11:27 08/28/17 16:22 08/28/17 20:12 08/28/17 23:16 Bedside Glucose 170 mg/dl 115 mg/dl 84 mg/dl 91 mg/dl Test 08/29/17 04:02 08/29/17 05:30 Bedside Glucose 147 mg/dl White Blood Count 7.94 K/uL Red Blood Count 4.77 M/uL Hemoglobin 13.2 g/dL Hematocrit 39.3 % Mean Corpuscular Volume 82.4 fL Mean Corpuscular Hemoglobin 27.7 pg Mean Corpuscular Hemoglobin Concent 33.6 g/dl Platelet Count 224 K/uL Mean Platelet Volume 9.4 fL Neutrophils (%) (Auto) 87.2 % Lymphocytes (%) (Auto) 10.8 % Monocytes (%) (Auto) 1.0 % Eosinophils (%) (Auto) 0.3 % Basophils (%) (Auto) 0.3 % Neutrophils # (Auto) 6.93 K/uL Lymphocytes # (Auto) 0.86 K/uL Monocytes # (Auto) 0.08 K/uL Eosinophils # (Auto) 0.02 K/uL Basophils # (Auto) 0.02 K/uL RDW Standard Deviation 37.5 fL RDW Coefficient of Variation 12.5 % Immature Granulocyte % (Auto) 0.4 % Immature Granulocyte # (Auto) 0.03 K/uL Sodium Level 136 mmol/L Potassium Level 4.4 mmol/L Chloride Level 106 mmol/L Carbon Dioxide Level 18 mmol/L Anion Gap 12.0 mmol/L Blood Urea Nitrogen 52 mg/dl Creatinine 3.46 mg/dl Est Creatinine Clear Calc Drug Dose 20.9 ml/min Estimated GFR () 16.8 Estimated GFR (Non- 14.5 BUN/Creatinine Ratio 15.1 Random Glucose 192 mg/dl Calcium Level 9.4 mg/dl Phosphorus Level 4.0 mg/dl Magnesium Level 2.7 mg/dl
[2017-08-29] MEDS ORDERED: SODIUM CHLORIDE 0.9% 1000ML 1,000 ML IV SCH (11:30)
--- NOTE | 2017-08-29 11:39 | Pharmacy Progress Note ---
Glycemic: Assessment & Plan Date of Service Aug 29, 2017. Assessment & Plan The patient is currently receiving 52 units of insulin per day. BSGs ranging 84 - 192 mg/dl over the past 24hrs. Patient a little lower than optimal overnight. I therefore reduced the dose to 35 units qam. Subsequent to this, methylprednisolone 40mg IV q 4 X 4 doses was ordered for allergic reaction. Because of this, I ordered another 10 units of lantus in anticipation of steroid induced hyperglycemia. The patient's PO intake is little to none given swollen tongue. * Basal insulin: Lantus 35 units every q am + 10 additional units this morning * Correctional Insulin: Novolog Correction per scale q4h Goal Range: Low 120 mg/dL - High 160 mg/dL Correction Factor: 20 mg/dL/unit * Prandial insulin: Per carb ratio of 1 unit per 6 grams CHO consumed Pharmacy will continue to monitor patient daily and write orders per [facility] inpatient glycemic control protocol. Thanks. * Please note that the plan above was derived based on current level of insulin resistance and hospital stress. These recommendations are appropriate for inpatient admission only. Plan of care upon discharge will need to be reassessed to avoid potential outpatient hypo/hyperglycemia.
--- NOTE | 2017-08-29 12:23 | DIAGNOSTIC IMAGING REPORT ---
KUB CLINICAL HISTORY: Nasogastric tube placement COMPARISON STUDY: No previous studies for comparison. FINDINGS: The recently placed nasogastric tube is positioned within the stomach. There is no pathologic bowel dilatation. IMPRESSION: The nasogastric tube is visualized within the stomach. Electronically signed by: Peter Naqvi M.D. 08/29/2017 12:22 PM Dictated Date/Time: 08/29/2017 12:21 PM
== END 2017-08-29 13:29 | disposition short-term general hospital (02) | DRG 64 ==
LOC: C.EDB 11:06 → C.MSICU 13:51 → ENRESERV 14:13
PROVIDERS: ADMIT Internal Medicine; ATTEND Internal Medicine
DX: I63.8 Other cerebral infarction (principal); E11.10 Type 2 diabetes mellitus with ketoacidosis without coma; I16.1 Hypertensive emergency; N17.9 Acute kidney failure, unspecified; E87.1 Hypo-osmolality and hyponatremia; R29.702 NIHSS score 2; R47.1 Dysarthria and anarthria; E78.1 Pure hyperglyceridemia; E78.00 Pure hypercholesterolemia, unspecified; E87.6 Hypokalemia; T78.3XXA Angioneurotic edema, initial encounter; T46.4X5A Adverse effect of angiotensin-converting-enzyme inhibitors, initial encounter; I12.9 Hypertensive chronic kidney disease with stage 1 through stage 4 chronic kidney disease, or unspecified chronic kidney disease; E11.22 Type 2 diabetes mellitus with diabetic chronic kidney disease; N18.9 Chronic kidney disease, unspecified; Z91.14 Patient's other noncompliance with medication regimen; I69.398 Other sequelae of cerebral infarction; Z79.82 Long term (current) use of aspirin; Z79.84 Long term (current) use of oral hypoglycemic drugs; Z79.899 Other long term (current) drug therapy; Z88.2 Allergy status to sulfonamides; Z82.49 Family history of ischemic heart disease and other diseases of the circulatory system; Z83.3 Family history of diabetes mellitus